=== PATIENT | female | born 2000 | race Caucasian/White ===

== ENCOUNTER → 2020-01-07 09:02 | Outpatient (BNVA) | payer SELFPAY | PROVIDERS: Visit Provider Family Medicine | DX: N91.2 Amenorrhea, unspecified (principal); Z3A.01 Less than 8 weeks gestation of pregnancy | CPT/HCPCS: 81025 ==

== ENCOUNTER → 2020-01-27 13:21 | Outpatient (BNVA) | payer MEDICAID, SELFPAY | PROVIDERS: Visit Provider Nurse Practitioner Women's Health | DX: Z34.81 Encounter for supervision of other normal pregnancy, first trimester (principal); Z3A.01 Less than 8 weeks gestation of pregnancy | CPT/HCPCS: 81000 ==

== ENCOUNTER → 2020-02-10 08:58 | Outpatient (BNVA) | payer MEDICAID, SELFPAY | PROVIDERS: Visit Provider Obstetrics & Gynecology | DX: Z34.81 Encounter for supervision of other normal pregnancy, first trimester (principal) | CPT/HCPCS: 80053; 80307; 81000; 85027; 86592; 86762; 86803; 86850; 86900; 87340 ==

== ENCOUNTER → 2020-02-29 09:52 | Outpatient (BNVA) | payer MEDICAID, SELFPAY | PROVIDERS: Visit Provider Obstetrics & Gynecology | DX: Z34.81 Encounter for supervision of other normal pregnancy, first trimester (principal) | CPT/HCPCS: 81000; 87491; 87591; 88175 ==

== ENCOUNTER → 2020-03-23 08:04 | Outpatient (BNVA) | payer MEDICAID, SELFPAY | PROVIDERS: Visit Provider Nurse Practitioner Women's Health | DX: Z34.81 Encounter for supervision of other normal pregnancy, first trimester (principal) | CPT/HCPCS: 81000 ==

== ENCOUNTER → 2020-05-02 15:20 | Outpatient (BNVA) | payer MEDICAID, SELFPAY | PROVIDERS: Visit Provider Obstetrics & Gynecology | DX: Z34.90 Encounter for supervision of normal pregnancy, unspecified, unspecified trimester (principal) | CPT/HCPCS: 81000 ==

== ENCOUNTER → 2020-05-24 08:47 | Outpatient (BNVA) | payer MEDICAID, SELFPAY | PROVIDERS: Visit Provider Obstetrics & Gynecology | DX: Z34.81 Encounter for supervision of other normal pregnancy, first trimester (principal) | CPT/HCPCS: 81000 ==

== ENCOUNTER → 2020-06-21 10:52 | Outpatient (BNVA) | payer MEDICAID, SELFPAY | PROVIDERS: Visit Provider Obstetrics & Gynecology | DX: Z34.90 Encounter for supervision of normal pregnancy, unspecified, unspecified trimester (principal) | CPT/HCPCS: 81000; 82950; 85025 ==

== ENCOUNTER → 2020-07-11 08:05 | Outpatient (BNVA) | payer MEDICAID, SELFPAY | PROVIDERS: Visit Provider Obstetrics & Gynecology | DX: Z34.81 Encounter for supervision of other normal pregnancy, first trimester (principal) | CPT/HCPCS: 81000 ==

== ENCOUNTER → 2020-07-19 11:04 | Outpatient (BNVA) | payer MEDICAID, SELFPAY | PROVIDERS: Visit Provider Obstetrics & Gynecology | DX: Z34.81 Encounter for supervision of other normal pregnancy, first trimester (principal) | CPT/HCPCS: 81000 ==

== ENCOUNTER → 2020-08-02 09:30 | Outpatient (BNVA) | payer MEDICAID, SELFPAY | PROVIDERS: Visit Provider Nurse Practitioner Women's Health | DX: Z34.81 Encounter for supervision of other normal pregnancy, first trimester (principal) | CPT/HCPCS: 81000 ==

== ENCOUNTER 2020-08-03 18:00 | Outpatient (CLI) | payer MEDICAID, SELFPAY ==
[2020-08-03 18:29] VITALS: BMI 25.4
[2020-08-03 18:34] VITALS: TEMP 36.4
[2020-08-03 19:28] VITALS: BP 118/80; PULSE 60; RESP 18; TEMP 36.4
[2020-08-03 19:37] LABS: Nitrazine Paper, PH Negative
== END 2020-08-03 18:45 | disposition home or self-care (01) ==
LOC: OBGYN 18:36 → OPOB 08-04 08:11 → OBGYN 08-04 08:11
PROVIDERS: Visit Provider Obstetrics & Gynecology
DX: O26.899 Other specified pregnancy related conditions, unspecified trimester (principal); Z3A.00 Weeks of gestation of pregnancy not specified; N89.8 Other specified noninflammatory disorders of vagina
CPT/HCPCS: 59025; 83986; 99211; G0378; G0379

== ENCOUNTER → 2020-08-22 13:30 | Outpatient (BNVA) | payer MEDICAID, SELFPAY | PROVIDERS: Visit Provider Obstetrics & Gynecology | DX: Z34.81 Encounter for supervision of other normal pregnancy, first trimester (principal) | CPT/HCPCS: 81000; 87081 ==

== ENCOUNTER → 2020-08-29 08:11 | Outpatient (BNVA) | payer BC, MEDICAID, SELFPAY | PROVIDERS: Visit Provider Obstetrics & Gynecology | DX: O26.899 Other specified pregnancy related conditions, unspecified trimester (principal); N89.8 Other specified noninflammatory disorders of vagina; Z3A.00 Weeks of gestation of pregnancy not specified | CPT/HCPCS: 81000; 83986 ==

== ENCOUNTER → 2020-09-06 08:46 | Outpatient (BNVA) | payer BC, MEDICAID, SELFPAY | PROVIDERS: Visit Provider Obstetrics & Gynecology | DX: Z34.90 Encounter for supervision of normal pregnancy, unspecified, unspecified trimester (principal) | CPT/HCPCS: 81000 ==

== ENCOUNTER → 2020-09-13 10:16 | Outpatient (BNVA) | payer BC, MEDICAID, SELFPAY | PROVIDERS: Visit Provider Obstetrics & Gynecology | DX: Z34.81 Encounter for supervision of other normal pregnancy, first trimester (principal) | CPT/HCPCS: 81000; 87635 ==

== ENCOUNTER 2020-09-14 17:59 | Inpatient (IN) | payer BC, MEDICAID, SELFPAY ==
[2020-09-14] VITALS (8 sets, daily range): BP systolic 112–142; BP diastolic 64–75; PULSE 73–87; RESP 16; TEMP 37; O2SAT 97–98; BMI 26.6
[2020-09-14] MEDS: miSOPROStol 100 mcg tablet 25 MCG VAGINAL (19:02)
[2020-09-14 20:25] LABS: Basophils % 0.3 %; Eosinophils # 0.1 10^3/uL (0.0-0.8); Eosinophils % 0.6 %; Hematocrit 35.6 % (37.0-47.0); Lymphocytes # 2.2 10^3/uL (0.8-4.8); Lymphocytes % 17.8 %; Mean Corpuscular HGB Conc 33.7 g/dL (30.0-36.0); Mean Corpuscular Hemoglobin 31.7 pg (28.0-34.0); Mean Corpuscular Volume 94.2 fL (81-99); Mean Platelet Volume 12.6 fL (7.4-10.4); Monocytes # 0.7 10^3/uL (0.2-0.9); Monocytes % 5.5 %; Neutrophils # 9.46 10^3/uL (1.8-7.7); Neutrophils % 75.4 %; Nucleated Red Blood Cells % 0 %; Platelet Count 179 10^3/cmm (130-400); Red Blood Count 3.78 10^6/uL (4.1-5.3); Red Cell Distribution Width 11.9 % (12.1-15.1); White Blood Count 12.5 10^3/uL (4.0-10.0)
[2020-09-14] MEDS: dextrose 5%-lactated ringers 1,000 ML 125 ML IV (22:00)
[2020-09-14] MEDS: fentaNYL 50 mcg/mL INJ 2mL IV (22:43)
[2020-09-14] MEDS: lactated ringers 1,000 ML 999 ML IV (22:57)
[2020-09-15] VITALS (50 sets, daily range): BP systolic 81–232; BP diastolic 46–131; PULSE 54–144; TEMP 36.4–37.1; O2SAT 84–99
--- NOTE | 2020-09-15 00:20 | ANES.PREANE2 ---
Pre-Anesthetic Assessment Pre-Anesthetic Assessment: Height/Weight: Height 1.68 m Weight 74.843 kg Temp Pulse Resp BP Pulse Ox 98.6 F 72 16 114/54 96 09/14/20 18:39 09/15/20 00:18 09/14/20 22:43 09/15/20 00:18 09/15/20 00:14 Preop Diagnosis: Active Labor Proposed Procedure: Epidural Familial anesthetic complications: none Was Beta Nahid taken within 24 hours: N/A Last intake: Meal 1700 Clear Liquids 2330 Social: Social History: No alcohol and No tobacco Exam: Pre-Anes Outpt Exam: clear to auscultation bilaterally Airway: Submandibular: WNL Cervical ROM: WNL MP: 2 History/ROS: No significant history except as noted Pulmonary: Pulmonary: None reported CV/HEM: CV/HEM: None reported : : None reported Hepatic: Hepatic: None reported GI: GI: None reported Metabolic: Metabolic: None reported Musc/skel: Musc/skel: None reported Neuropsych: Neuropsych: None reported Anesthetic Plan: ASA status: 2 Anesthesia: Eval. for regional block Risk of > 500 ml blood loss (7ml/kg in children): No Meds/Allergies Current Medications: Current Medications Generic Name Dose Route Start Last Admin Trade Name Freq PRN Reason Stop Dose Admin Fentanyl 25 - 100 mcg 09/14/20 18:44 09/14/20 22:43 Fentanyl 50 Mcg/ Ml Inj 2ml IV 25 mcg Q1H PRN Administration SEVERE PAIN Dextrose/Lactated Ringer's 1,000 mls @ 125 m ls/hr 09/14/20 18:45 09/14/20 22:57 Dextrose 5%-Lact ated Ringers IV 0 mls/hr .Q8H VIKASH Infusion Ropivacaine 200 mg in 100 mls @ 13 mls/hr 09/14/20 23:00 09/15/20 00:16 Naropin Premix EPIDURAL 13 mls/hr .Q7H42M VIKASH Administration Lactated Ringer's 1,000 mls @ 999 m ls/hr 09/14/20 22:52 09/14/20 23:58 Lactated Ringers IV Infused .Q1H1M PRN Infusion See label comment s PFSH Anesthesia PFSH: Medical History No pertinent past medical history Denies history of: hypertension, diabetes, heart, lung, liver, kidney, thyroid, genital herpes, bleeding problems, or clotting problems PMD: Dr. Serrano Surgical History No history of previous surgery Family History Denies family history of Colon cancer Ovarian cancer Diabetes Heart disease Hyperlipidemia Breast cancer Hypertension Uterine cancer Thyroid condition Stroke Social History Smoking and tobacco status: never smoked Alcohol intake: never Additional social history: - Female Reproductive History: : 2 Data Anesthesia CBC & Chem 7: 09/14/20 18:30 Other Labs: Laboratory Results - last 48 hr 09/14/20 18:30 WBC 12.5 H RBC 3.78 L Hgb 12.0 Hct 35.6 L MCV 94.2 MCH 31.7 MCHC 33.7 RDW 11.9 L Plt Count 179 MPV 12.6 H Neut % (Auto) 75.4 Lymph % (Auto) 17.8 [place] % (Auto) 5.5 Eos % (Auto) 0.6 Baso % (Auto) 0.3 Neut # (Auto) 9.46 H Lymph # (Auto) 2.2 [place] # (Auto) 0.7 Eos # (Auto) 0.1 Baso # (Auto) 0.0 Nucleated RBC % (auto) 0 Nucleated RBCs # 0.0 Cardiac Studies: No Data to Display
--- NOTE | 2020-09-15 00:23 | ANES.PROC ---
Anesthesia Procedures Procedure/Date: 09/15/20 Epidural: Time Out Performed: Yes Consents Signed: Procedure Consent Consent: requested by attending/covering physician Lumbar Level: L3-L4 Epidural position: sitting Epidural procedure: sterile prep of area, 1% lidocaine to numb the area, negative for paresthesia passed, 0.2% Ropivacaine bolus ml and 0.2% Ropiavacaine @ mls/hr (13 ml) Additional Comments: HARPAL at 6 cm catheter threaded to 11 cm
[2020-09-15] MEDS: lactated ringers 1,000 ML 999 ML IV (00:27)
[2020-09-15] MEDS: oxytocin 30 UNIT/500 ML BAG 600 UNIT IV (01:30)
--- NOTE | 2020-09-15 01:38 | P.PCNOB_ITS ---
Delivery Note: Date of delivery: September 15, 2020 Pre-delivery diagnoses: Term Post-delivery diagnoses: Term delivered Procedure: Spontaneous vaginal delivery Op report anesthesia: Epidural Delivering Physician: Memo Burdick MD Estimated blood loss (mL): 500 Findings: Delivered female infant Apgars 9/9 with a weight 3405 g. First-degree laceration, repaired. Pre-Delivery Course: Ms. Mina is a 20 year old with an LMP of 12/01/2019 and an JORGE of 09/13/2020 redated by an 8 week ultrasound, placing her at 40 2/7 weeks today. Who has been receiving care from [facility]. HPI: Received appropriate care. Daily vitamins since start of care. labs have all been normal, including negative for HIV. She was found to be negative for Group B Strep from screening at 36 weeks. She has gained approximately 38 lbs throughout the . She denies a history of HTN during . Glucose tolerance screening for gestational diabetes was negative. Came in yesterday afternoon for an elective induction. 1 misoprostol dose was given intravaginally for cervical ripening. She was then started on oxytocin for labor augmentation and progress to a spontaneous vaginal delivery. Delivery: The patient was noted to be complete and pushing, so was placed in the dorsal lithotomy position, prepped and draped in the usual sterile fashion for a vaginal delivery. Pt. Noted to have epidural anesthesia. At 0126 the patient delivered a viable at 40 weeks female infant weighing 3405 g with scores of 9 and 9 at one and five minutes, respectively. The vertex was delivered spontaneously over an intact perineum. The patient was asked to push and the head delivered spontaneously in the MARIA ELENA position, over an intact perineum. A nuchal cord was checked and none noted. The anterior shoulder delivered easily and the posterior shoulder followed. The remainder of the infant was easily delivered and the oropharynx and nasopharynx was bulb suctioned. Meconium stained amniotic fluid noted. The was noted to have spontaneous cry and spontaneous movement of all four extremities. The cord was clamped x 2 and cut and noted to have 2 arteries and one vein. The was passed to the mother's abdomen where nursing personnel were in attendance. Cord blood sample was then obtained. The placenta delivered intact spontaneously and the uterus was explored. 20 units of Pitocin was placed in the IV bag to firm the uterus. Examination of the cervix and vaginal vault did not reveal any lacerations. A vaginal pack was then placed. Examination of the perineum showed first-degree laceration. The laceration was repaired with 3-0 Vicryl in the normal fashion in a running non locking fashion to reapproximate the laceration in layers. The vaginal pack was then removed. The patient tolerated this procedure well, and recovered in L&D with her to the OB torrez. All sponge and needle counts were correct. Post-Delivery Status: Good and stable. A&P Assessment and plan (1) Term delivered: Status: Acute Coding Level of Care Code Acute Food Safety Technician for Chg Fwd Diagnoses Term delivered O80
[2020-09-15] MEDS: docusate sodium 100 mg Capsule PO ×2 (08:05→17:20)
[2020-09-15] MEDS: ibuprofen 800 mg tablet PO ×3 (08:05→21:42)
[2020-09-15] MEDS: prenatal vitamin Capsule 1 CAP PO (08:05)
[2020-09-15] MEDS: acetaminophen 325 mg Tablet 650 MG PO ×2 (09:25→17:19)
[2020-09-15 13:53] LABS: Mean Corpuscular HGB Conc 33.3 g/dL (30.0-36.0); Mean Corpuscular Hemoglobin 32.1 pg (28.0-34.0); Mean Corpuscular Volume 96.2 fL (81-99); Platelet Count 154 10^3/cmm (130-400); Red Blood Count 3.43 10^6/uL (4.1-5.3); Red Cell Distribution Width 11.9 % (12.1-15.1); White Blood Count 13.6 10^3/uL (4.0-10.0)
[2020-09-16 06:31] VITALS: TEMP 36.1
[2020-09-16 06:32] VITALS: BP 106/73; PULSE 61
--- NOTE | 2020-09-16 08:33 | P.DS_ITS ---
Discharge Providers TUMBLER MACHINE OPERATOR Date of Admission: 09/14/20 17:59 Date of Discharge: 09/16/20 Attending Provider at Admission: Memo Burdick MD Attending Provider at Discharge: Memo Burdick MD Diagnoses at Discharge Discharge Diagnosis (1) Term delivered: Status: Acute Reason for Visit Reason for Visit: IUP Hospital Course Hospital Course Ms. Mina is a 20 year old with an LMP of 12/01/2019 and an JORGE of 09/13/2020 dated by an 8 week ultrasound, placing her at 40 2/7 weeks today. Who has been receiving care from [facility]. HPI: Received appropriate care. Daily vitamins since start of care. labs have all been normal, including negative for HIV. She was found to be negative for Group B Strep from screening at 36 weeks. She has gained approximately 38 lbs throughout the . She denies a history of HTN during . Glucose tolerance screening for gestational diabetes was negative. Came in yesterday afternoon for an elective induction. 1 misoprostol dose was given intravaginally for cervical ripening. She was then started on oxytocin fo r labor augmentation and progress to a spontaneous vaginal delivery. She delivered a female infant, APGARS 9/9 with a weight at 3405g. recovery uneventful. She is afebrile and hemodynamically stable. Tolerating diet well. She is breast feeding and plan OCP for contraception. Information Peripartum Data: Delivery Method: Vaginal Laceration description: Perineal - 1st Degree complications: none Physical Exam Narrative: EXAM NARRATIVE: GA; alert and oriented x 3 HEENT: normal Breasts: engorged Nipples - skin intact Lungs; clear to auscultation Heart: regular rhythm, no murmurs. Abd: Appropriately tender. BS+. Uterine fundus below umbilicus. No Fundal Tenderness. Perineum: normal lochia. Extremities: no edema, no cyanosis, no tenderness. Urinary Catheter Management^: Rodriguez: Cath Placed During This Visit: yes, but has since been removed by the nurse Reason for Continuing Indwelling Catheter: Decision to DC Catheter Urinary Catheter Date of Insertion: 09/15/20 Urinary Catheter Time of Insertion: 00:49 Date Urinary Catheter Removed: 09/15/20 Time Urinary Catheter Discontinued: 01:19 Discharge Data Data Completed and Pending: Labs from last 24 hours 09/15/20 13:40 WBC 13.6 H RBC 3.43 L Hgb 11.0 L Hct 33.0 L MCV 96.2 MCH 32.1 MCHC 33.3 RDW 11.9 L Plt Count 154 MPV 12.0 H Vitals: Last Vital Signs Temp 97.0 F L 09/16/20 06:31 Pulse 61 09/16/20 06:32 Resp 16 09/14/20 22:43 BP 106/73 09/16/20 06:32 Pulse Ox 99 09/15/20 01:04 Discharge Plan Discharge Patient Disposition: Home Condition: Stable Prescriptions: New ferrous sulfate [Iron (ferrous sulfate)] 325 mg (65 mg iron) tablet 325 mg PO BID Qty: 60 RF: 0 acetaminophen 325 mg capsule 325 mg PO Q4H PRN (Reason: fever or pain) Qty: 60 RF: 0 ibuprofen 800 mg tablet 800 mg PO TID PRN (Reason: pain) Qty: 60 RF: 0 Continued prenat.vits,karla,lpm-jpni-wwlcs Tablet 1 tab PO DAILY RF: 0 Discharge Orders: Discharge Order (Routine); Ordered 09/16/20 Ordered By: Memo Burdick Referrals: Memo Burdick MD [Physician] - 2 weeks Discharge Diet: Regular Discharge Activity: Increase activity as tolerated Patient Instructions: Vaginal Delivery (DC) Activity Restrictions/Additional Instructions: 1. Please call [facility] on next working day to make your appointment in 6 weeks. 2. Please stay home until you come back to the clinic on first post-operative check up. 3. Please follow instructions on your medications CAREFULLY. 4. If you have abdominal incision, do not cover it unless dressing is necessary because of drainage. OK to shower, but avoid bath. Leave steri-strips until they fall off. If they are still on one week after surgery, you may remove them. 5. If you had vaginal surgery, your doctor may instruct you to take SITZ bath. 6. Yellow, blood tinged odorous vaginal discharge is usually normal after hysterectomy or vaginal surgeries. 7. No sexual intercourse, tampons, or douches until you are completely released from the post-operative care. 8. Avoid constipation by eating right and maybe using some Metamucil or Milk of Magnesia. 9. All prescription refills are given during the working hours. Please do no wait till it runs out. Call the clinic at [phone] before your medication runs out. The clinic will get in touch with your doctor to prescribe medications if necessary. 10. Please remain within 40 mile radius from our hospital because emergencies do happen now and then during the post-operative period. 11. If you have stairs at home, take one step at a time slowly and minimize the number of trips. It helps to stay in one floor for the next few days. No lifting except what you can lift by one hand until you are released from the post-operative care. 12. Driving is discouraged until you are well healed. It may be 3-4 weeks before you feel strong enough to drive. You should be able to turn and look through the rear window without pain and you should be able to push the brake pedal very hard without pain before you drive. No fast rules, but SAFETY should be your primary concern. DO NOT drive if you are on sedating medications such as narcotics. 13. Call the clinic (during working hours) to make urgent appointment or go to the Emergency room, if any of the following occurs: i. Vaginal bleeding becomes heavy, more than a period. ii. Incision becomes red and sore, or drains pus. iii. Your temperature is over 100.4 or you have chill. iv. IV site becomes red and swollen (a little ``knot?? is usually OK) v. Persistent nausea and vomiting vi. Persistent constipation or diarrhea vii. Rash or allergic reaction to medications. Discharge Attestations TUMBLER MACHINE OPERATOR Time Spent in Discharge Care*: greater than 30 min Coding Level of Care Code Acute Marketing Outreach Coordinator for Chg Fwd Diagnoses Term delivered O80
[2020-09-16] MEDS: ibuprofen 800 mg tablet PO (09:06)
[2020-09-16] MEDS: prenatal vitamin Capsule 1 CAP PO (09:06)
[2020-09-16] MEDS: docusate sodium 100 mg Capsule PO (09:06)
[2020-09-16] MEDS: acetaminophen 325 mg Tablet 650 MG PO (10:12)
[2020-09-16 10:30] VITALS: BP 117/78; PULSE 79; RESP 16; TEMP 36.3
[2020-09-16 10:35] VITALS: BP 117/78; PULSE 79; TEMP 36.3
== END 2020-09-16 10:39 | disposition home or self-care (01) | DRG 807 ==
PROVIDERS: Obstetrics & Gynecology; Admitting Provider Obstetrics & Gynecology; Visit Provider Obstetrics & Gynecology
DX: O77.0 Labor and delivery complicated by meconium in amniotic fluid (principal); Z37.0 Single live birth; O70.0 First degree perineal laceration during delivery; Z3A.40 40 weeks gestation of pregnancy
CPT/HCPCS: 12345; 36415; 51702; 59025; 59409; 85025; 85027; G0379; J2795; J3010

== ENCOUNTER → 2021-05-12 10:21 | Outpatient (BNVA) | payer BC, MEDICAID, SELFPAY | PROVIDERS: Visit Provider Nurse Practitioner Family | DX: Z20.822 Contact with and (suspected) exposure to COVID-19 (principal) | CPT/HCPCS: 87635 ==

== ENCOUNTER 2021-08-03 22:38 | Emergency (ER) | payer BC, MEDICAID, SELFPAY ==
[2021-08-03 22:48] VITALS: BP 117/78; PULSE 69; RESP 16; TEMP 36.7; O2SAT 100
--- NOTE | 2021-08-03 22:56 | XRR_ITS ---
PROCEDURE INFORMATION: Exam: XR Chest Exam date and time: 08/03/2021 10:56 PM Age: 21 years old Clinical indication: Pain; Chest pressure; Additional info: SOB TECHNIQUE: Imaging protocol: XR of the chest. Views: 1 view. COMPARISON: No relevant prior studies available. FINDINGS: Lungs: Unremarkable. No consolidation. Pleural spaces: Unremarkable. No pleural effusion. No pneumothorax. Heart/Mediastinum: Unremarkable. No cardiomegaly. Bones/joints: Unremarkable. XR/XR chest 1V portable [id number] IMPRESSION: No acute findings.
[2021-08-04 00:05] LABS: Influenza A by IFA Negative (Negative); Influenza B by IFA Negative (Negative); SARS Covid-2 Antigen Negative (Negative)
[2021-08-04 00:22] VITALS: PULSE 71; RESP 17; O2SAT 98
[2021-08-04 00:40] VITALS: PULSE 74; O2SAT 96
[2021-08-04] MEDS: sodium chloride 0.9% 1,000 ML 999 ML IV (00:44)
[2021-08-04 01:04] LABS: D Dimer 0.41 ug/mIFEU (0-0.59)
--- NOTE | 2021-08-04 01:05 | W.ED.SOB ---
HPI - SOB/Dyspnea General: Chief Complaint: Shortness of Breath/Dyspnea Stated Complaint: Cough\SOB\Muscle Aches\diahrea Time Seen by Provider: 08/04/21 00:00 Source: patient Mode of arrival: ambulatory Limitations: no limitations History of Present Illness: HPI Narrative: 21-year-old female states that she had Covid in April and was diagnosed with bronchitis 2 weeks ago. She states that she just finished her last dose of doxycycline has been having some epigastric burning abdominal pain radiating to her chest. States it is caused her some slight shortness of breath as well. States pain sharp. Today 6 out of 10 currently denies any worsening improving factors denies any cough or fever denies any vomiting or diarrhea. Associated symptoms: Reports abdominal pain; Deny chest pain or fever(s) Review of Systems Const: Denies: fever(s), chills, body aches or change in appetite Eyes: Denies: blurry vision or eye discomfort ENMT: Denies: throat pain or dental pain Card: Denies: chest pain Resp: Reports: dyspnea GI: Reports: abdominal pain : Denies: dysuria Musc: Denies: neck pain or back pain Skin/Breast: Denies: rash Neuro: Denies: headache(s) Psych: Denies: depression Eyal/Lymph: Denies: easy bruising All/Imm: Denies: urticaria PFSH ED PFSH: Medical History (Updated 08/04/21 @ 01:37 by Amy Heck MD) No pertinent past medical history Denies history of: hypertension, diabetes, heart, lung, liver, kidney, thyroid, genital herpes, bleeding problems, or clotting problems PMD: Dr. Serrano Surgical History No history of previous surgery Family History Denies family history of Colon cancer Ovarian cancer Diabetes Heart disease Hyperlipidemia Breast cancer Hypertension Uterine cancer Thyroid condition Stroke Social History Smoking and tobacco status: never smoked Alcohol intake: never Additional social history: - Physical Exam Const: COMMON NORMALS: no acute distress, patient oriented x3 and healthy appearing HENMT: COMMON NORMALS: normocephalic and atraumatic HEAD & SCALP: normocephalic and atraumatic Eye: COMMON NORMALS: Equal, round and reactive pupils present and EOMs intact bilaterally PUPIL: Yes Equal, round and reactive pupils present Neck/C-Spine: COMMON NORMALS: full ROM and supple Chest: COMMONS NORMALS: normal inspection of the chest and normal palpation of entire chest wall Resp: COMMON NORMALS: normal respiratory effort, No retractions, No use of accessory muscles and clear to auscultation bilaterally AUSCULTATION: clear to auscultation bilaterally Cardio: COMMON NORMALS: regular rate, regular rhythm and No murmurs present (Cardio) RATE: regular rate RHYTHM: regular rhythm GI: COMMON NORMALS: Normal to inspection, nondistended, normoactive bowel sounds present, Soft to palpation, non-tender and no masses PALPATION: Yes Soft to palpation Extremity: COMMON NORMALS: normal to inspection and full ROM Neuro: COMMON NORMALS: patient oriented x3, moves all extremities and no focal motor deficits Psych: COMMON NORMALS: mental status grossly normal, Normal thought process present and cooperative THOUGHT PROCESS: Normal thought process present Skin: COMMON NORMALS: no rashes or lesions noted and no wounds GENERAL SKIN EXAM: no rashes or lesions noted Course Vital Signs: Vital signs: Vital Signs Temperature 98.0 F 08/03/21 22:48 Pulse Rate 74 08/04/21 00:40 Respiratory Rate 17 08/04/21 00:22 Blood Pressure 117/78 08/03/21 22:48 Pulse Oximetry 96 08/04/21 00:40 MDM - SOB/Dyspnea MDM Narrative: Medical decision making narrative: Patient presents with some abdominal pain likely gastritis from antibiotic use. D-dimer here is negative no sign of pulmonary embolism x-ray is negative for pneumonia blood work is normal. We will place her on Protonix she is to follow-up with PCP and return if worsening she understands agrees to plan. Lab Data: Labs: Lab Results 08/03/21 08/03/21 08/04/21 23:35 23:35 00:31 WBC 11.8 10^3/uL H 10 ^3/uL (4.0-10.0) RBC 4.34 10^6/uL 10^6 /uL (4.1-5.3) Hgb 12.7 g/dL g/dL (11.5-15.3) Hct 39.0 % % (37.0-47.0) MCV 89.9 fl fl (81-99) MCH 29.3 pg pg (28.0-34.0) MCHC 32.6 g/dL g/dL (30.0-36.0) RDW 12.0 % L % (12.1-15.1) Plt Count 271 10^3/cmm 10^3 /cmm (130-400) MPV 10.8 fL H fL (7.4-10.4) Neut % (Auto) 65.4 % % Lymph % (Auto) 25.3 % % [place] % (Auto) 6.6 % % Eos % (Auto) 1.9 % % Baso % (Auto) 0.5 % % Neut # (Auto) 7.72 10^3/uL H 10 ^3/uL (1.8-7.7) Lymph # (Auto) 3.0 10^3/uL 10^3/ uL (0.8-4.8) [place] # (Auto) 0.8 10^3/uL 10^3/ uL (0.2-0.9) Eos # (Auto) 0.2 10^3/uL 10^3/ uL (0.0-0.8) Baso # (Auto) 0.1 10^3/uL 10^3/ uL (0.0-0.1) Nucleated RBC % (a uto) 0 % % Nucleated RBCs # 0.0 /100WBC /100W BC D-Dimer Sodium Potassium Chloride Carbon Dioxide Anion Gap BUN Creatinine GFR Calculation Glucose Calculated Osmolal ity Calcium Total Bilirubin AST ALT Alkaline Phosphata se Total Protein Albumin Globulin Lipase Influenza Type A A g Negative (Negative) Influenza Type B A g Negative (Negative) SARS-CoV-2 Ag (Rap id) Negative (Negative) 08/04/21 08/04/21 00:31 00:31 WBC RBC Hgb Hct MCV MCH MCHC RDW Plt Count MPV Neut % (Auto) Lymph % (Auto) [place] % (Auto) Eos % (Auto) Baso % (Auto) Neut # (Auto) Lymph # (Auto) [place] # (Auto) Eos # (Auto) Baso # (Auto) Nucleated RBC % (a uto) Nucleated RBCs # D-Dimer 0.41 ug/mIFEU ug/ mIFEU (0-0.59) Sodium 138 mmol/L mmol/L (136-145) Potassium 3.8 mmol/L mmol/L (3.5-5.1) Chloride 103 mmol/L mmol/L (98-107) Carbon Dioxide 22 mmol/L mmol/L (22-29) Anion Gap 16.8 (5-19) BUN 14 mg/dL mg/dL (6-20) Creatinine 0.5 mg/dL mg/dL (0.5-0.9) GFR Calculation 152.9 mL/min H mL /min (90-130) Glucose 87 mg/dL mg/dL (65-115) Calculated Osmolal ity 286 mOsm/kg mOsm/ kg (285-295) Calcium 9.4 mg/dL mg/dL (8.5-10.5) Total Bilirubin 1.7 mg/dL H mg/dL (0.15-1.2) AST 14 U/L U/L (0-32) ALT 11 U/L U/L (0-33) Alkaline Phosphata se 74 IU/L IU/L (35-105) Total Protein 7.6 g/dL g/dL (6.6-8.7) Albumin 4.7 g/dL g/dL (3.5-5.2) Globulin 2.9 g/dL g/dL (1.3-4.6) Lipase 20 U/L U/L (13-60) Influenza Type A A g Influenza Type B A g SARS-CoV-2 Ag (Rap id) Imaging Data^: CXR: Attestation: I personally reviewed and interpreted this imaging study as follows: Radiologist's impression: [place] [address] XRay Report Signed Patient: Melissa Mina Unit #: [id number] : 2000 Age/Sex: 21 / F ADM Date: 08/03/21 Loc: ER Room/Bed: Attending Dr: Ordering Provider/Ordering MD: Ada Watson , [facility] Date of Service: 08/03/21 Procedure(s): XR chest 1V portable [id number] Accession Number(s): [id number] Report Number: [id number] PROCEDURE INFORMATION: Exam: XR Chest Exam date and time: 08/03/2021 10:56 PM Age: 21 years old Clinical indication: Pain; Chest pressure; Additional info: SOB TECHNIQUE: Imaging protocol: XR of the chest. Views: 1 view. COMPARISON: No relevant prior studies available. FINDINGS: Lungs: Unremarkable. No consolidation. Pleural spaces: Unremarkable. No pleural effusion. No pneumothorax. Heart/Mediastinum: Unremarkable. No cardiomegaly. Bones/joints: Unremarkable. XR/XR chest 1V portable [id number] IMPRESSION: No acute findings. Dictated By: Satish Rider Signed By: Satish Rider Signed Date/Time: 08/04/21 0022 EKG Data^: EKG 1: Attestation: I personally reviewed and interpreted this EKG as follows: EKG Interpretation Date: 08/04/21 EKG interpretation time: 01:15 Interpretation: sinus ludin hr [address] or t wave abnormalities qrs 84 qtc 375 Discharge Plan Discharge Patient Disposition: Home Clinical Impression: Dyspnea Abdominal pain Qualifiers: Abdominal location: generalized Qualified Code(s): R10.84 - Generalized abdominal pain Condition: Stable Prescriptions: New Protonix 40 mg tablet,delayed release (DR/EC) 40 mg PO DAILY Qty: 60 RF: 0 No Action norethindrone (contraceptive) [Leatha] 0.35 mg tablet 0.35 mg PO DAILY Qty: 84 RF: 2 Discharge Orders: Discharge ED (Routine); Ordered 08/04/21 Ordered By: Amy Heck Discharge Diet: Advance as tolerated Discharge Activity: Resume usual activity Patient Instructions: Abdominal Pain (ED) Coding Level of Care Code ED Wind Tunnel Mechanic for Chg Fwd Exam Comprehensive
--- NOTE | 2021-08-04 01:06 | ECG_ITS ---
[facility] Test Date: 2021-08-04 Pat Name: Melissa Mina Department: Room: Gender: Female [employer]: : 2000 Requested By: Amy Heck Order Number: [id number] Minh MD: Cornelia Lambert M.D. Measurements Intervals Platinum Rate: 58 P: 77 NM: 144 QRS: 79 QRSD: 84 T: 66 QT: 377 QTc: 373 Interpretive Statements SINUS BRADYCARDIA WITH SINUS ARRHYTHMIA No previous ECG available for comparison Electronically Signed On 08-05-2021 7:37:26 HR GENERALIST by Cornelia Lambert M.D. [id number]
[2021-08-04 01:10] LABS: Alanine Aminotransferase 11 U/L (0-33); Albumin Level 4.7 g/dL (3.5-5.2); Alkaline Phosphatase 74 IU/L (35-105); Anion Gap 16.8 (5-19); Aspartate Amino Transferase 14 U/L (0-32); Blood Urea Nitrogen 14 mg/dL (6-20); Calcium 9.4 mg/dL (8.5-10.5); Carbon Dioxide 22 mmol/L (22-29); Chloride 103 mmol/L (98-107); Globulin 2.9 g/dL (1.3-4.6); Glomerular Filtration Rate 152.9 mL/min (90-130); Glucose 87 mg/dL (65-115); Lipase 20 U/L (13-60); Osmolality Calculated 286 mOsm/kg (285-295); Potassium 3.8 mmol/L (3.5-5.1); Sodium 138 mmol/L (136-145); Total Bilirubin 1.7 mg/dL (0.15-1.2); Total Protein 7.6 g/dL (6.6-8.7)
[2021-08-04 01:12] LABS: Basophils # 0.1 10^3/uL (0.0-0.1); Basophils % 0.5 %; Eosinophils # 0.2 10^3/uL (0.0-0.8); Eosinophils % 1.9 %; Hemoglobin 12.7 g/dL (11.5-15.3); Lymphocytes % 25.3 %; Mean Corpuscular HGB Conc 32.6 g/dL (30.0-36.0); Mean Corpuscular Hemoglobin 29.3 pg (28.0-34.0); Mean Corpuscular Volume 89.9 fl (81-99); Mean Platelet Volume 10.8 fL (7.4-10.4); Monocytes # 0.8 10^3/uL (0.2-0.9); Monocytes % 6.6 %; Neutrophils # 7.72 10^3/uL (1.8-7.7); Neutrophils % 65.4 %; Nucleated Red Blood Cells % 0 %; Platelet Count 271 10^3/cmm (130-400); Red Blood Count 4.34 10^6/uL (4.1-5.3); White Blood Count 11.8 10^3/uL (4.0-10.0)
[2021-08-04 01:45] VITALS: PULSE 77; RESP 19; O2SAT 100
== END 2021-08-04 01:47 | disposition home or self-care (01) ==
PROVIDERS: Emergency Provider Emergency Medicine
DX: R06.00 Dyspnea, unspecified (principal); R10.84 Generalized abdominal pain
CPT/HCPCS: 71045; 80053; 83690; 85025; 85378; 87426; 87804; 93005; 96360; 99283; J7030

== ENCOUNTER → 2021-08-09 15:46 | Outpatient (BNVA) | payer BC, MEDICAID, SELFPAY | PROVIDERS: Visit Provider Family Medicine | DX: J02.9 Acute pharyngitis, unspecified (principal) | CPT/HCPCS: 87880 ==

== ENCOUNTER → 2022-01-08 16:53 | Outpatient (BNVA) | payer BC, MEDICAID, SELFPAY | PROVIDERS: Visit Provider Nurse Practitioner Family | DX: Z20.822 Contact with and (suspected) exposure to COVID-19 (principal); Z13.9 Encounter for screening, unspecified; R05.9 Cough, unspecified; J40 Bronchitis, not specified as acute or chronic; R10.12 Left upper quadrant pain; R50.9 Fever, unspecified | CPT/HCPCS: 80053; 82150; 83690; 87635 ==

== ENCOUNTER → 2022-06-20 17:06 | Outpatient (BNVA) | payer OTHER, SELFPAY | PROVIDERS: Visit Provider Nurse Practitioner Family | DX: Z20.818 Contact with and (suspected) exposure to other bacterial communicable diseases (principal); J02.0 Streptococcal pharyngitis | CPT/HCPCS: 87880 ==

== ENCOUNTER → 2022-08-21 15:00 | Outpatient (BNVA) | payer OTHER, SELFPAY | PROVIDERS: Visit Provider Nurse Practitioner Women's Health | DX: Z34.90 Encounter for supervision of normal pregnancy, unspecified, unspecified trimester (principal); N92.6 Irregular menstruation, unspecified | CPT/HCPCS: 80307; 84315; 87086 ==

== ENCOUNTER → 2022-09-06 15:06 | Outpatient (BNVA) | payer OTHER, SELFPAY | PROVIDERS: Visit Provider Obstetrics & Gynecology | DX: Z34.91 Encounter for supervision of normal pregnancy, unspecified, first trimester (principal); Z3A.11 11 weeks gestation of pregnancy | CPT/HCPCS: 76801 ==

== ENCOUNTER → 2022-09-11 10:15 | Outpatient (BNVA) | payer OTHER, SELFPAY | PROVIDERS: Visit Provider Obstetrics & Gynecology | DX: Z34.90 Encounter for supervision of normal pregnancy, unspecified, unspecified trimester (principal) | CPT/HCPCS: 80307; 84315; 85027; 86592; 86762; 86803; 86850; 86900; 87086; 87340; 87491; 87591; 87661; 87806; 88175 ==

== ENCOUNTER → 2022-10-11 16:05 | Outpatient (BNVA) | payer OTHER, SELFPAY | PROVIDERS: Visit Provider Nurse Practitioner Women's Health | DX: Z34.90 Encounter for supervision of normal pregnancy, unspecified, unspecified trimester (principal); R00.2 Palpitations | CPT/HCPCS: 84315; 84443; 85025 ==

== ENCOUNTER → 2022-11-05 07:55 | Outpatient (BNVA) | payer OTHER, SELFPAY | PROVIDERS: PCP Nurse Practitioner Family; Visit Provider Obstetrics & Gynecology | DX: Z34.92 Encounter for supervision of normal pregnancy, unspecified, second trimester (principal); Z3A.20 20 weeks gestation of pregnancy | CPT/HCPCS: 76805 ==

== ENCOUNTER → 2022-12-04 11:07 | Outpatient (BNVA) | payer OTHER, SELFPAY | PROVIDERS: PCP Nurse Practitioner Family; Visit Provider Obstetrics & Gynecology | DX: Z34.92 Encounter for supervision of normal pregnancy, unspecified, second trimester (principal); Z3A.24 24 weeks gestation of pregnancy | CPT/HCPCS: 76816; 82950; 84315 ==

== ENCOUNTER → 2023-01-15 15:10 | Outpatient (BNVA) | payer OTHER, SELFPAY | PROVIDERS: PCP Nurse Practitioner Family; Visit Provider Obstetrics & Gynecology | DX: Z34.90 Encounter for supervision of normal pregnancy, unspecified, unspecified trimester (principal) | CPT/HCPCS: 84315; 85025 ==

== ENCOUNTER → 2023-02-12 10:00 | Outpatient (BNVA) | payer OTHER, SELFPAY | PROVIDERS: PCP Nurse Practitioner Family; Visit Provider Nurse Practitioner Women's Health | DX: Z34.80 Encounter for supervision of other normal pregnancy, unspecified trimester (principal) | CPT/HCPCS: 81000 ==

== ENCOUNTER 2023-02-21 12:54 | Outpatient (CLI) | payer OTHER, SELFPAY ==
--- NOTE | 2023-02-21 13:15 | US_ITS ---
WS: [id number] LIMITED OBSTETRICAL ULTRASOUND HISTORY: Growth scan, small for gestational age. COMPARISON: 09/06/2022, 12/04/2022 Presentation: Vertex. Cervix: Closed and normal length. Placenta: Anterior, no previa or abruption. Grade: 1 HEART: FHR of 150 BPM. measurements: BPD = 9.4 cm = 38w2d; 98th percentile HC = 33.5 cm = 38w2d; 83rd percentile AC = 30.5 cm = 34w3d; 28th percentile FL = 6.8 cm = 34w6d; 24th percentile Amniotic fluid: There are several pockets of amniotic fluid identified. The largest at 3.4 cm. Visual ly the amount of amniotic fluid is normal. EFW: 2653 g; 59th percentile AGA by ultrasound: 36w3d JORGE by ultrasound: 03/18/2023 Biometry remains within 10 days of the age determined during the first trimester ultrasound. BPD is m easuring at the 98th percentile. US/US OB limited [id number] IMPRESSION: 1. Single intrauterine gestation of 36 weeks 3 days and JORGE of 03/18/2023. Appr opriate growth since the first trimester ultrasound. 2. BPD at the 98th percentile. The remaining biometry is normal. 3. Estimated weight at the 59th percentile for age. 4. Normal amniotic fluid.
== END 2023-02-21 12:55 | disposition home or self-care (01) ==
PROVIDERS: PCP Nurse Practitioner Family; Visit Provider Nurse Practitioner Women's Health
DX: O36.5930 Maternal care for other known or suspected poor fetal growth, third trimester, not applicable or unspecified (principal); Z3A.36 36 weeks gestation of pregnancy
CPT/HCPCS: 76815

== ENCOUNTER → 2023-02-26 08:46 | Outpatient (BNVA) | payer OTHER, BC, SELFPAY | PROVIDERS: PCP Nurse Practitioner Family; Visit Provider Obstetrics & Gynecology | DX: Z34.80 Encounter for supervision of other normal pregnancy, unspecified trimester (principal) | CPT/HCPCS: 84315; 87081 ==

== ENCOUNTER 2023-03-21 10:51 | Outpatient (CLI) | payer OTHER, SELFPAY ==
[2023-03-21] VITALS (22 sets, daily range): BP systolic 99–111; BP diastolic 60–78; PULSE 75–157; TEMP 36.5; O2SAT 92–100; BMI 26.9
[2023-03-21] MEDS: lactated ringers 1,000 ML 999 ML IV (11:29)
== END 2023-03-21 12:55 | disposition home or self-care (01) ==
LOC: OPOB 10:58 → OBGYN 11:00
PROVIDERS: PCP Nurse Practitioner Family; Visit Provider Obstetrics & Gynecology
DX: O47.9 False labor, unspecified (principal); Z3A.00 Weeks of gestation of pregnancy not specified
CPT/HCPCS: 36415; 59025; 84315; 99211; J7120

== ENCOUNTER → 2023-03-25 08:39 | Outpatient (BNVA) | payer OTHER, SELFPAY | PROVIDERS: PCP Nurse Practitioner Family; Visit Provider Obstetrics & Gynecology | DX: Z34.80 Encounter for supervision of other normal pregnancy, unspecified trimester (principal) | CPT/HCPCS: 76819; 81000 ==

== ENCOUNTER 2023-03-26 19:01 | Inpatient (IN) | payer OTHER, SELFPAY ==
[2023-03-26] VITALS (11 sets, daily range): BP systolic 105–118; BP diastolic 59–76; PULSE 71–99; RESP 17; TEMP 36.3–36.5; BMI 28.2
[2023-03-26] MEDS: miSOPROStol 100 mcg tablet 25 MCG VAGINAL ×2 (16:00→20:34)
[2023-03-26 17:22] LABS: Basophils % 0.3 %; Eosinophils # 0.1 10^3/uL (0.0-0.8); Eosinophils % 1.2 %; Hematocrit 33.6 % (37.0-47.0); Hemoglobin 11.2 g/dL (11.5-15.3); Lymphocytes # 2.1 10^3/uL (0.8-4.8); Lymphocytes % 21.2 %; Mean Corpuscular HGB Conc 33.3 g/dL (30.0-36.0); Mean Corpuscular Hemoglobin 30.2 pg (28.0-34.0); Mean Corpuscular Volume 90.6 fl (81-99); Monocytes # 0.6 10^3/uL (0.2-0.9); Monocytes % 5.6 %; Neutrophils # 6.97 10^3/uL (1.8-7.7); Neutrophils % 71.3 %; Nucleated Red Blood Cells % 0 %; Platelet Count 161 10^3/cmm (130-400); Red Blood Count 3.71 10^6/uL (4.1-5.3); Red Cell Distribution Width 12.7 % (12.1-15.1); White Blood Count 9.8 10^3/uL (4.0-10.0)
[2023-03-27] VITALS (50 sets, daily range): BP systolic 91–143; BP diastolic 53–84; PULSE 54–125; RESP 18; TEMP 36.1–36.6; O2SAT 89–100
[2023-03-27] MEDS: miSOPROStol 100 mcg tablet 25 MCG VAGINAL (01:22)
[2023-03-27] MEDS: lactated ringers 1,000 ML 999 ML IV ×2 (06:22→07:23)
[2023-03-27] MEDS: ROPivacaine syringe 100 MG/50 ML SYRINGE 10 MG EPIDURAL ×2 (07:12→11:39)
--- NOTE | 2023-03-27 07:49 | ANES.PREANE2 ---
Pre-Anesthetic Assessment Height/Weight: Height 1.68 m Weight 79.379 kg Temp Pulse Resp BP Pulse Ox O2 Del Method 97.2 F L 57 L 17 109/58 100 Room Air 03/27/23 04:22 03/27/23 07:42 03/26/23 16:00 03/27/23 07:42 03/27/23 07:23 03/26/23 18:05 epidural Familial anesthetic complications: None Was Beta Naihd taken within 24 hours: N/A Was Clonidine taken within 24 hours: N/A Social No alcohol and No tobacco Exam alert, oriented x 3, clear to auscultation bilaterally and regular rate & rhythm Airway Mallampati: Class I Dentition: full Anesthetic Plan ASA status: 2 Anesthesia: Regional (specify below) Risk of > 500 ml blood loss (7ml/kg in children): Yes, adequate IV access and fluids planned Medications/Allergies Home Medications Medication Instructions Recorded Confirmed Last Taken Type prenat.vits,karla,bzf-unka-jecls 1 tab PO DAILY 02/12/23 03/25/23 Unknown History pantoprazole 20 mg tablet,delayed 20 mg PO DAILY 02/26/23 03/25/23 Unknown History release Allergies Allergy/AdvReac Type Severity Reaction Status Date / Time doxycycline AdvReac Severe severe Verified 03/21/23 10:09 Nausea and diarrhea Current Medications Generic Name Dose Route Start Last Admin Trade Name Freq PRN Reason Stop Dose Admin Lactated Ringer's 1,000 mls @ 999 mls/hr 03/26/23 19:04 03/27/23 07:23 Lactated Ringers IV 999 mls/hr .Q1H1M PRN Administration See label comments Ropivacaine 100 mg in 50 mls @ 10 mls/hr 03/26/23 19:15 03/27/23 07:12 Naropin Syringe EPIDURAL 10 mls/hr .Q5H VIKASH Administration PFSH Anesthesia Medical History No pertinent past medical history Denies history of: hypertension, diabetes, heart, lung, liver, kidney, thyroid, genital herpes, bleeding problems, or clotting problems PMD: Dr. Serrano Surgical History No history of previous surgery Family History Denies family history of Colon cancer Ovarian cancer Diabetes Heart disease Hyperlipidemia Breast cancer Hypertension Uterine cancer Thyroid condition Stroke Social History Smoking and tobacco status: never smoked Second hand smoke exposure: No Alcohol intake: never Substance/Drug Use: never Female Reproductive History : 3 Data Anesthesia 03/26/23 16:30 Short CBC 03/26/23 Range/Units 16:30 WBC 9.8 (4.0-10.0) 10^3/uL Hgb 11.2 L (11.5-15.3) g/dL Hct 33.6 L (37.0-47.0) % MCV 90.6 (81-99) fl Plt Count 161 (130-400) 10^3/cmm Neut % (Auto) 71.3 % Neut # (Auto) 6.97 (1.8-7.7) 10^3/uL Cardiac Studies: No Data to Display
--- NOTE | 2023-03-27 07:51 | ANES.PROC ---
Anesthesia Procedures Procedure/Date: 03/27/23 Epidural: Time Out Performed: Yes Consents Signed: Procedure Consent Consent: requested by attending/covering physician, from patient, from other and risks and benefits reviewed Lumbar Level: L3-L4 Epidural position: sitting Epidural procedure: sterile prep of area, 1% lidocaine to numb the area, 18 g needle, negative for paresthesia passed, neg for paresthesia, test dose given, 1.5% xylocaine 1:200k epi (5 cc), 0.2% Ropivacaine bolus ml (5 ), placed PCEA, no systemic response, sterile dressing applied, L.U.D. no apparent complications and 0.2% Ropiavacaine @ mls/hr (10) Additional Comments: HARPAL at 4.5 cm, threaded to 10.5 cm
--- NOTE | 2023-03-27 07:55 | PM.OPHPUD ---
Labor & Delivery H&P Update Date of Procedure: March 27, 2023 Date H&P Performed: 03/25/23 H&P update information: I have reviewed H&P completed within last 30 days, I have examined patient prior to procedure and No changes to prior documentation Admission Diagnosis:
[2023-03-27] MEDS: dextrose 5%-lactated ringers 1,000 ML 125 ML IV (08:53)
[2023-03-27] MEDS: oxytocin 30 UNIT/500 ML BAG IV (11:02)
--- NOTE | 2023-03-27 13:58 | P.PCNOB_ITS ---
Delivery Note: Date of delivery: March 27, 2023 Pre-delivery diagnoses: Term Post-delivery diagnoses: Term delivered Procedure: Spontaneous vaginal delivery Estimated blood loss (mL): 500 Pre-Delivery Course: The patient is a 22yo at 40+2 weeks EGA who has been receiving care from [facility]. Admitted for elective induction HPI: Received appropriate care. Daily vitamins since start of care. labs have all been normal, including negative for HIV. She was found to negative for Group B Strep from screening at 36 weeks. She has gained approximately 48 lbs throughout the . She denies a history of HTN during . Glucose tolerance screening for gestational diabetes was negative. Delivery: The patient was noted to be complete and pushing, so was placed in the dorsal lithotomy position, prepped and draped in the usual sterile fashion for a vaginal delivery. Pt. Noted to have epidural anesthesia. At 1348 the patient delivered a viable male weighing 4020 g with scores of 8 and 9 at one and five minutes, respectively. The vertex was delivered spontaneously over intact perineum. The patient was asked to push and the head delivered spontaneously in the MARIA ELENA position, over an intact perineum. A nuchal cord was checked and 1 noted, and delivered through around head as necessary. The anterior shoulder delivered easily and the posterior shoulder followed. The remainder of the was easily delivered and the oropharynx and nasopharynx was bulb suctioned. The was noted to have spontaneous cry and spontaneous movement of all four extremities. The cord was clamped x 2 and cut and noted to have 2 arteries and one vein. The was passed to the mother's abdomen where nursing personnel were in attendance. Cord blood sample was then obtained. The placenta delivered intact spontaneously and the uterus was explored. 20 units of Pitocin was placed in the IV bag to firm the uterus. Examination of the cervix and vaginal vault did not reveal any lacerations. A vaginal pack was then placed. Examination of the perineum showed no laceration. The vaginal pack was then removed. The patient tolerated this procedure well, and recovered in L&D with her infant in their LDR room. All sponge and needle counts were correct. Post-Delivery Status: Good and stable History History History 3 Term 2 0 Miscarriages/Ectopic 0 Living Children 2 A&P Assessment and plan (1) Term delivered: Coding Level of Care Code Acute Code for Chg Fwd Diagnoses Term delivered O80
[2023-03-27] MEDS: benzocaine-menthol 78 gm Canister 1 SPRAY TOPICAL (20:07)
[2023-03-27] MEDS: lanolin oint 7 gm 1 APPLIC TOPICAL (20:07)
[2023-03-27] MEDS: docusate sodium 100 mg Capsule PO (20:07)
[2023-03-27] MEDS: ibuprofen 800 mg tablet PO (20:07)
[2023-03-27] MEDS: HYDROcodone-acetaminophen 5-325 mg Tablet PO (23:26)
[2023-03-28 02:45] LABS: Hematocrit 30.3 % (37.0-47.0); Hemoglobin 10.2 g/dL (11.5-15.3); Mean Corpuscular HGB Conc 33.7 g/dL (30.0-36.0); Mean Corpuscular Hemoglobin 30.5 pg (28.0-34.0); Mean Corpuscular Volume 90.7 fl (81-99); Mean Platelet Volume 11.8 fL (7.4-10.4); Platelet Count 155 10^3/cmm (130-400); Red Blood Count 3.34 10^6/uL (4.1-5.3); Red Cell Distribution Width 12.5 % (12.1-15.1); White Blood Count 11.4 10^3/uL (4.0-10.0)
[2023-03-28 05:00] VITALS: BP 97/64; TEMP 36.5
--- NOTE | 2023-03-28 07:35 | ANE.PACU2 ---
Inpatient post-anesthesia follow up: Airway intact: Yes Vital signs: Temperature 97.7 F Pulse Rate 85 Respiratory Rate 18 Blood Pressure 97/64 Pulse Oximetry 100 Oxygen Delivery Me thod Room Air Oxygen Flow Rate Fraction of Inspir ed Oxygen Hydration adequate: Yes Nausea and vomiting: No Pain level: 1 Mental status: Baseline
[2023-03-28] MEDS: prenatal vitamin Capsule 1 CAP PO (09:34)
[2023-03-28] MEDS: ibuprofen 800 mg tablet PO (09:34)
[2023-03-28] MEDS: docusate sodium 100 mg Capsule PO (09:34)
[2023-03-28 10:14] VITALS: BP 101/76
--- NOTE | 2023-03-28 13:25 | P.DS_ITS ---
Discharge Providers WEB SERVICES MANAGER Date of Admission: 03/26/23 19:01 Date of Discharge: 03/28/23 Attending Provider at Admission: Memo Burdick MD Attending Provider at Discharge: Memo Burdick MD Primary WEB SERVICES MANAGER: Memo Burdick MD Primary Care Provider: JESUS Francisco Diagnoses at Discharge Discharge Diagnosis (1) Term delivered: Status: Acute Reason for Visit Reason for Visit: IOL Brief History: Ms. Jung is a 22 year old established patient with an LMP of 06/17/22, an JORGE of 03/24/23 based on her LMP placing her at 40-2/7 weeks admitted for elective induction Hospital Course Hospital Course Mrs. jung 22-year-old female admitted to labor and delivery for elective induction. She progressed to have a spontaneous vaginal delivery without comp lication. and observation was uneventful. She is afebrile and hemodynamically stable day 1. Tolerating diet well. Ambulating without difficulty. She was counseled regarding pelvic rest for 6 weeks (no sex, no tampons, no vaginal douches). Return to the emergency room if any fever, increased bleeding or pain. Information Peripartum Data: Delivery Method: Vaginal Physical Exam Narrative: GA; alert and oriented x 3 HEENT: normal Breasts: engorged Nipples - skin intact Lungs; clear to auscultation Heart: regular rhythm, no murmurs. Abd: Appropriately tender. BS+. Uterine fundus below umbilicus. No Fundal Tenderness. Perineum: normal lochia. Extremities: no edema, no cyanosis, no tenderness. Urinary Catheter Management: Rodriguez: Cath Placed During This Visit: yes Reason for Continuing Indwelling Catheter: Accurate Measurement of Urinary Output in Critically Ill Patients Urinary Catheter Date of Insertion: 03/27/23 Urinary Catheter Time of Insertion: 09:05 History History History 3 Term 2 0 Miscarriages/Ectopic 0 Living Children 2 Discharge Data Studies Completed and Pending Laboratory Results WBC 11.4 10^3/uL (4.0-10.0) H 03/28/23 02:23 RBC 3.34 10^6/uL (4.1-5.3) L 03/28/23 02:23 Hgb 10.2 g/dL (11.5-15.3) L 03/28/23 02:23 Hct 30.3 % (37.0-47.0) L 03/28/23 02: MCV 90.7 fl (81-99) 03/28/23 02: MCH 30.5 pg (28.0-34.0) 03/28/23 02: MCHC 33.7 g/dL (30.0-36.0) 03/28/23 02: RDW 12.5 % (12.1-15.1) 03/28/23 02: Plt Count 155 10^3/cmm (130-400) 03/28/23 02: MPV 11.8 fL (7.4-10.4) H 03/28/23 02:23 Neut % (Auto) 71.3 % 03/26/23 16:30 Lymph % (Auto) 21.2 % 03/26/23 16:30 [place] % (Auto) 5.6 % 03/26/23 16:30 Eos % (Auto) 1.2 % 03/26/23 16:30 Baso % (Auto) 0.3 % 03/26/23 16:30 Neut # (Auto) 6.97 10^3/uL (1.8-7.7) 03/26/23 16:30 Lymph # (Auto) 2.1 10^3/uL (0.8-4.8) 03/26/23 16:30 [place] # (Auto) 0.6 10^3/uL (0.2-0.9) 03/26/23 16:30 Eos # (Auto) 0.1 10^3/uL (0.0-0.8) 03/26/23 16:30 Baso # (Auto) 0.0 10^3/uL (0.0-0.1) 03/26/23 16:30 Nucleated RBC % (auto) 0 % 03/26/23 16:30 Nucleated RBCs # 0.0 /100WBC 03/26/23 16:30 Vitals Last Vital Signs Temp 97.7 F 03/28/23 05:00 Pulse 85 03/27/23 23:45 Resp 18 03/27/23 17:39 BP 101/76 03/28/23 10:14 Pulse Ox 100 03/27/23 07:23 O2 Del Method Room Air 03/28/23 05:00 Discharge Plan Discharge Patient Disposition: Home Condition: Stable Prescriptions: New acetaminophen 325 mg capsule 325 mg PO Q4H PRN (Reason: fever or pain) Qty: 60 0RF docusate sodium [Colace] 100 mg capsule 100 mg PO BID Qty: 60 0RF ferrous sulfate [Iron (ferrous sulfate)] 325 mg (65 mg iron) tablet 325 mg PO BID Qty: 60 0RF ibuprofen 800 mg tablet 800 mg PO TID PRN (Reason: pain) Qty: 60 0RF Continued prenat.vits,karla,hxd-bbsg-bgixt Tablet 1 tab PO DAILY pantoprazole 20 mg tablet,delayed release (DR/EC) 20 mg PO DAILY Discharge Orders: Discharge Order (Routine); Ordered 03/28/23 Ordered By: Memo Burdick Referrals: Memo Burdick MD [Physician] - 2 weeks Discharge Diet: Usual diet Discharge Activity: Limit activity as instructed Patient Instructions: Opioid Safety, Vaginal Delivery (GEN), Your 's Appearance (GEN), Bleeding (GEN), Caring for Your Baby (GEN) Activity Restrictions/Additional Instructions: 1. Please call [facility] clinic on next working day to make your appointment in 6 weeks. 2. Please stay home until you come back to the clinic on first post- hospatilization check up. 3. Please follow instructions on your medications CAREFULLY. 4. If you have abdominal incision, do not cover it unless dressing is necessary because of drainage. OK to shower, but avoid bath. Leave steri-strips until they fall off. If they are still on one week after surgery, you may remove them. 5. If you had vaginal surgery or vaginal repair, Dr. Burdick may instruct you to take SITZ bath. 6. Yellow, blood tinged odorous vaginal discharge is usually normal after hyste rectomy or vaginal surgeries. 7. No SEXUAL INTERCOURSE, tampons, or douches until you are completely released from the post-operative care. 8. Avoid constipation by eating right and maybe using some Metamucil or Milk of Magnesia. 9. All prescription refills are given during the working hours. Please do no wait till it runs out. Call the clinic at [phone] before your medication runs out. The clinic will get in touch with your doctor to prescribe medications if necessary. 10. Please remain within 40 mile radius from our hospital because emergencies do happen now and then during the post-operative period. 11. If you have stairs at home, take one step at a time slowly and minimize the number of trips. It helps to stay in one floor for the next few days. No lifting except what you can lift by one hand until you are released from the post-operative care. 12. Driving is discouraged until you are well healed. It may be 3-4 weeks before you feel strong enough to drive. You should be able to turn and look through the rear window without pain and you should be able to push the brake pedal very hard without pain before you drive. No fast rules, but SAFETY should be your primary concern. DO NOT drive if you are on sedating medications such as narcotics. 13. Call the clinic (during working hours) to make urgent appointment or go to the Emergency room, if any of the following occurs: i. Vaginal bleeding becomes heavy, more than a period. ii. Incision becomes red and sore, or drains pus. iii. Your TEMPERATURE is over 100.4F or you have chill. iv. IV site becomes red and swollen (a little ``knot?? is usually OK) v. Persistent nausea and vomiting vi. Persistent constipation or diarrhea vii. Rash or allergic reaction to medications. Discharge Attestations WEB SERVICES MANAGER Time Spent in Discharge Care*: greater than 30 min Coding Level of Care Code Acute Code for Chg Fwd Diagnoses Term delivered O80
[2023-03-28 14:54] VITALS: BP 108/71; PULSE 69; RESP 15; TEMP 36.7; O2SAT 98
== END 2023-03-28 15:25 | disposition home or self-care (01) | DRG 807 ==
LOC: OPOB 19:04 → OBGYN 19:04
PROVIDERS: Admitting Provider Obstetrics & Gynecology; PCP Nurse Practitioner Family; Visit Provider Obstetrics & Gynecology
DX: O48.0 Post-term pregnancy (principal); Z37.0 Single live birth; Z3A.40 40 weeks gestation of pregnancy; O69.81X0 Labor and delivery complicated by cord around neck, without compression, not applicable or unspecified
CPT/HCPCS: 36415; 51702; 59025; 59409; 85025; 85027; 99211; J2590; J2795; J7120; J7121

== ENCOUNTER → 2023-06-14 16:32 | Outpatient (BNVA) | payer OTHER, SELFPAY | PROVIDERS: PCP Nurse Practitioner Family; Visit Provider Nurse Practitioner Family | DX: R30.0 Dysuria (principal) | CPT/HCPCS: 81000 ==

== ENCOUNTER 2023-09-07 10:50 | Emergency (ER) | payer OTHER, BC, SELFPAY ==
--- NOTE | 2023-09-07 11:14 | W.ED.ABDPA2 ---
HPI - Abdominal Pain General: Chief Complaint: Abdominal Pain Stated Complaint: Abd pain, sent from walk in clinic Time Seen by Provider: 09/07/23 11:14 History of Present Illness: 23yo female that presents to the emergency department after being seen at the walk-in clinic earlier today. She states she was advised to come to the emergency department for additional evaluation for her right lower quadrant abdominal pain that has been intermittent for the previous 4 days. She describes the pain as a sharp stabbing type pain that is a 5 out of 10 when it does occur. She states she also had nausea throughout the evening and this morning without vomiting. She also states that she had a single episode of watery diarrhea earlier this morning. She states that she did take her temperature last night and it was 99.9 ?F. She states she was sent here to the emergency department for concerns of an acute appendicitis. Associated Symptoms: Reports diarrhea and nausea Review of Systems General: Reports: 10 or more systems reviewed and unremarkable except in HPI and below GI: Reports: abdominal pain, nausea and diarrhea [facility] ED PFSH: Medical History Oral contraception initial prescription No pertinent past medical history Denies history of: hypertension, diabetes, heart, lung, liver, kidney, thyroid, genital herpes, bleeding problems, or clotting problems PMD: Dr. Serrano Surgical History No history of previous surgery Family History Denies family history of Colon cancer Ovarian cancer Diabetes Heart disease Hyperlipidemia Breast cancer Hypertension Uterine cancer Thyroid disease Stroke Social History Smoking and tobacco/nicotine status: never used tobacco/nicotine Second hand smoke exposure: No Alcohol intake: never Substance/Drug Use: never Physical Exam Narrative: EXAM NARRATIVE: Constitutional: the patient appears well nourished and of normal development. Vital signs as documented. No acute distress at present. Alert and oriented-to person, place, time and situation. Head, eyes, ears, nose, mouth, throat: Normocephalic, atraumatic. Pupils-equal, round, reactive to light. No scleral icterus. Normal-appearing external ears. Normal appearing nasal turbinates, no drainage. No obvious oral lesions, posterior oropharynx without erythema or exudates. Neck: Supple, trachea is midline, no lymphadenopathy, no jugular venous distension, thyromegaly, or carotid bruits. Carotid upstrokes are brisk bilaterally. Lungs: clear to auscultation to all lung rausch. Symmetrical rise and fall of chest, no obvious signs of increased work of breathing at present. Cardiac: Regular rate and rhythm, positive S1, S2. No murmurs, rubs or gallops that I can appreciate Abdomen: Soft, right and left lower quadrant of the abdomen are slightly tender to palpation, normal active bowel sounds to all quadrants. No palpable masses, no organomegaly and abdominal bruits. Extremities: 2+ pulses in the upper extremities that are equal bilaterally, 2+ pulses in the lower extremities that are equal bilaterally. Non-edematous. Moves all extremities well, sensation to all extremities are noted. Skin: Warm, dry, intact. Course Vital Signs: Vital signs: Vital Signs Temperature 98.1 F 09/07/23 11:58 Pulse Rate 72 09/07/23 14:29 Respiratory Rate 15 09/07/23 11:58 Blood Pressure 93/53 09/07/23 14:29 Pulse Oximetry 100 09/07/23 14:29 Oxygen Delivery Me thod Room Air 09/07/23 14:29 MDM - Abdominal Pain Medical Decision Making 23-year-old female seen by the walk-in clinic referred to the emergency department for additional evaluation secondary to right lower quadrant abdominal pain we will obtain CBC and CMP as well as urinalysis and urine hCG and provide the patient with a CT scan of her abdomen pelvis to rule out acute appendicitis, gastroenteritis, UTI, pyelonephritis, and constipation. Medical Records I reviewed the patient's medical records. Lab Data I reviewed the patient's lab results. 09/07/23 13:08 09/07/23 13:08 Labs/Radiology: Radiology Impressions Abdomen/Pelvis CT 09/07/23 12:51 IMPRESSION: No acute findings. Laboratory Results WBC 8.00 10^3/uL (3.29-11.43) 09/07/23 13:08 RBC 4.73 10^6/uL (3.85-5.65) 09/07/23 13:08 Hgb 13.50 g/dL (11.27-16.99) 09/07/23 13:08 Hct 41.7 % (36-47) 09/07/23 13:08 MCV 88.2 fl (85-98) 09/07/23 13:08 MCH 28.5 pg (27-33) 09/07/23 13:08 MCHC 32.4 g/dL (30-55) 09/07/23 13:08 RDW 11.9 % (12.1-15.1) L 09/07/23 13:08 Plt Count 253 10^3/cmm (157-399) 09/07/23 13:08 MPV 10.8 fL (7.4-10.4) H 09/07/23 13:08 Neut % (Auto) 59.1 % 09/07/23 13:08 Lymph % (Auto) 32.6 % 09/07/23 13:08 [place] % (Auto) 5.6 % 09/07/23 13:08 Eos % (Auto) 2.0 % 09/07/23 13:08 Baso % (Auto) 0.6 % 09/07/23 13:08 Neut # (Auto) 4.72 10^3/uL (1.8-7.7) 09/07/23 13:08 Lymph # (Auto) 2.6 10^3/uL (0.8-4.8) 09/07/23 13:08 [place] # (Auto) 0.5 10^3/uL (0.2-0.9) 09/07/23 13:08 Eos # (Auto) 0.2 10^3/uL (0.0-0.8) 09/07/23 13:08 Baso # (Auto) 0.1 10^3/uL (0.0-0.1) 09/07/23 13:08 Nucleated RBC % (auto) 0 % 09/07/23 13:08 Nucleated RBCs # 0.0 /100WBC 09/07/23 13:08 Sodium 143 mmol/L (136-145) 09/07/23 13:08 Potassium 3.4 mmol/L (3.5-5.1) L 09/07/23 13:08 Chloride 107 mmol/L (98-107) 09/07/23 13:08 Carbon Dioxide 22 mmol/L (22-29) 09/07/23 13:08 Anion Gap 17.4 (5-19) 09/07/23 13:08 BUN 16 mg/dL (6-20) 09/07/23 13:08 Creatinine 0.4 mg/dL (0.5-0.9) L 09/07/23 13:08 GFR Calculation 194.5 mL/min (90-130) H 09/07/23 13:08 Glucose 78 mg/dL (65-115) 09/07/23 13:08 Calculated Osmolality 296 mOsm/kg (285-295) H 09/07/23 13:08 Calcium 9.5 mg/dL (8.5-10.5) 09/07/23 13:08 Total Bilirubin 1.5 mg/dL (0.15-1.2) H 09/07/23 13:08 AST 18 U/L (0-32) 09/07/23 13:08 ALT 15 U/L (0-33) 09/07/23 13:08 Alkaline Phosphatase 111 U/L (35-105) H 09/07/23 13:08 Total Protein 8.0 g/dL (6.6-8.7) 09/07/23 13:08 Albumin 4.4 g/dL (3.5-5.2) 09/07/23 13:08 Globulin 3.6 g/dL (1.3-4.6) 09/07/23 13:08 Lipase 19 U/L (13-60) 09/07/23 13:08 HCG, Qual Negative (Negative) 09/07/23 12:59 Urine Color Yellow (Yellow) 09/07/23 12:59 Urine Appearance Hazy (CLEAR) A 09/07/23 12:59 Urine pH 6.5 (5-7) 09/07/23 12:59 Ur Specific [place] 1.015 (1.005-1.030) 09/07/23 12:59 Urine Protein 2+ (Negative) H 09/07/23 12:59 Urine Glucose (UA) Norm (Normal) 09/07/23 12:59 Urine Ketones 1+ (Negative) H 09/07/23 12:59 Urine Blood Neg (Negative) 09/07/23 12:59 Urine Nitrate Negative (Negative) 09/07/23 12:59 Urine Bilirubin Neg (Negative) 09/07/23 12:59 Urine Urobilinogen Norm mg/dL (Negative) 09/07/23 12:59 Ur Leukocyte Esterase Trace (Negative) H 09/07/23 12:59 Urine RBC None /hpf (0-2) 09/07/23 12:59 Urine WBC 5-10 /hpf (0-5) H 09/07/23 12:59 Ur Squamous Epith Cells 10-15 /hpf (0-5) H 09/07/23 12:59 Amorphous Sediment Not Reportable 09/07/23 12:59 Urine Bacteria 1+ /hpf (NONE) H 09/07/23 12:59 Urine Mucus 1+ /hpf 09/07/23 12:59 All radiology interpretation(s) finalized by discharge Discharge Plan Discharge Patient Disposition: Home Clinical Impression: Abdominal pain, UTI (urinary tract infection) Condition: Stable Prescriptions: New Bactrim DS 800-160 mg tablet 1 tab PO BID 5 Days Qty: 10 0RF No Action norethindrone (contraceptive) 0.35 mg tablet 0.35 mg PO BEDTIME Discharge Orders: Discharge ED (Routine); Ordered 09/07/23 Ordered By: Jaspal Quintana Referrals: Rachel Carver FNP [Primary Care Provider] - Discharge Diet: Advance as tolerated Discharge Activity: Resume usual activity Patient Instructions: Abdominal Pain (ED), Opioid Safety, Pain Management Activity Restrictions/Additional Instructions: Activity Restrictions/Additional Instructions: Thank you for choosing [facility] for your healthcare needs today. Please realize that you were seen in the Emergency Department and that we are providing you with an emergency medical screening exam and this may not be a complete and all inclusive of all the testing and or medical work-up that you may need to determine your ailment or severity of your illness. It is very important that you follow-up as instructed with your Primary care provider or Specialist for additional evaluation and to discuss your medical treatment plan. You may return to the Emergency Department should you have concerns or if your condition changes or worsens in any way. Coding Level of Care Code ED Tucking Machine Operator for Michel Sapp
[2023-09-07 11:58] VITALS: BP 122/82; PULSE 83; RESP 15; TEMP 36.7; O2SAT 96
--- NOTE | 2023-09-07 12:51 | CTR_ITS ---
PROCEDURE INFORMATION: Exam: CT Abdomen And Pelvis With Contrast Exam date and time: 09/07/2023 1:42 PM Age: 23 years old Clinical indication: Abdominal pain; Localized; Right lower quadrant (rlq); Additional info: Right lower quadrant abdominal pain TECHNIQUE: Imaging protocol: Computed tomography of the abdomen and pelvis with contrast. Radiation optimization: All CT scans at this facility use at least one of these dose optimization techniques: automated exposure control; mA and/or kV adjustment per patient size (includes targeted exams where dose is matched to clinical indication); or iterative reconstruction. Contrast material: OMNI 350; Contrast volume: 100 ml; Contrast route: INTRAVENOUS (IV); COMPARISON: US OB BPP wo NST [id number] 03/25/2023 8:40 AM RADIATION DOSE METRICS: Total DLP (mGy-cm): 335.68 FINDINGS: Lungs: Lung bases are clear. No pleural effusion. Liver: Normal. No mass. Gallbladder and bile ducts: Normal. No calcified stones. No ductal dilation. Pancreas: Normal. No ductal dilation. Spleen: Normal. No splenomegaly. Adrenal glands: Normal. No mass. Kidneys and ureters: Normal. No hydronephrosis. Stomach and bowel: Unremarkable. No obstruction. No mucosal thickening. Appendix: No evidence of appendicitis. The appendix is normal. Intraperitoneal space: Unremarkable. No free air. No significant fluid collection. Vasculature: Unremarkable. No abdominal aortic aneurysm. Lymph nodes: Unremarkable. No enlarged lymph nodes. Urinary bladder: Unremarkable as visualized. Reproductive: Unremarkable as visualized. Bones/joints: Unremarkable. No acute fracture. Soft tissues: Unremarkable. CT/CT abdomen pelvis w con* [id number] IMPRESSION: No acute findings.
[2023-09-07 13:21] LABS: HCG Qualitative Urine. Negative (Negative)
[2023-09-07 13:27] LABS: Basophils # 0.1 10^3/uL (0.0-0.1); Basophils % 0.6 %; Eosinophils # 0.2 10^3/uL (0.0-0.8); Hematocrit 41.7 % (36-47); Lymphocytes # 2.6 10^3/uL (0.8-4.8); Lymphocytes % 32.6 %; Mean Corpuscular HGB Conc 32.4 g/dL (30-55); Mean Corpuscular Hemoglobin 28.5 pg (27-33); Mean Corpuscular Volume 88.2 fl (85-98); Mean Platelet Volume 10.8 fL (7.4-10.4); Monocytes # 0.5 10^3/uL (0.2-0.9); Monocytes % 5.6 %; Neutrophils # 4.72 10^3/uL (1.8-7.7); Neutrophils % 59.1 %; Nucleated Red Blood Cells % 0 %; Platelet Count 253 10^3/cmm (157-399); Red Blood Count 4.73 10^6/uL (3.85-5.65); Red Cell Distribution Width 11.9 % (12.1-15.1)
[2023-09-07] MEDS: iohexol 350 mg/mL 500 mL Btl (per mL) IV (13:45)
[2023-09-07 13:46] LABS: Glucose Urine UA Norm (Normal); Ketones Urine 1+ (Negative); Protein Urine 2+ (Negative); Specific Gravity, Urine 1.015 (1.005-1.030); Urine Appearance Hazy (CLEAR); Urine Color Yellow (Yellow); pH Urine 6.5 (5-7)
[2023-09-07 13:47] LABS: Add Urine Culture? No; Add Urine Microscopic? YES; Bacteria Urine 1+ /hpf; Bilirubin Urine Neg (Negative); Blood Urine Neg (Negative); Leukocyte Esterase Urine Trace (Negative); Mucus Urine 1+ /hpf; Nitrate Urine Negative (Negative); Urobilinogen Urine Norm (Negative)
[2023-09-07 13:51] LABS: Alanine Aminotransferase 15 U/L (0-33); Albumin Level 4.4 g/dL (3.5-5.2); Alkaline Phosphatase 111 U/L (35-105); Anion Gap 17.4 (5-19); Aspartate Amino Transferase 18 U/L (0-32); Blood Urea Nitrogen 16 mg/dL (6-20); Calcium 9.5 mg/dL (8.5-10.5); Carbon Dioxide 22 mmol/L (22-29); Chloride 107 mmol/L (98-107); Creatinine Clr Calc Pharmacy 200.8179; Globulin 3.6 g/dL (1.3-4.6); Glomerular Filtration Rate 194.5 mL/min (90-130); Glucose 78 mg/dL (65-115); Lipase 19 U/L (13-60); Osmolality Calculated 296 mOsm/kg (285-295); Potassium 3.4 mmol/L (3.5-5.1); Sodium 143 mmol/L (136-145); Total Bilirubin 1.5 mg/dL (0.15-1.2)
[2023-09-07 14:29] VITALS: BP 93/53; PULSE 72; O2SAT 100
== END 2023-09-07 15:17 | disposition home or self-care (01) ==
PROVIDERS: Emergency Provider Internal Medicine; PCP Nurse Practitioner Family
DX: N39.0 Urinary tract infection, site not specified (principal)
CPT/HCPCS: 74177; 80053; 81001; 81025; 83690; 85025; 99285; Q9967

== ENCOUNTER → 2023-12-17 15:52 | Outpatient (BNVA) | payer OTHER, SELFPAY | PROVIDERS: PCP Nurse Practitioner Family; Visit Provider Nurse Practitioner Family | DX: N39.0 Urinary tract infection, site not specified (principal) | CPT/HCPCS: 81000 ==

== ENCOUNTER → 2024-01-01 17:03 | Outpatient (BNVA) | payer OTHER, SELFPAY | PROVIDERS: PCP Nurse Practitioner Family; Visit Provider Registered Nurse Neonatal Intensive Care | DX: J02.9 Acute pharyngitis, unspecified (principal); J03.80 Acute tonsillitis due to other specified organisms; B96.89 Other specified bacterial agents as the cause of diseases classified elsewhere | CPT/HCPCS: 87880 ==

== ENCOUNTER 2024-01-05 15:15 | Emergency (ER) | payer OTHER, SELFPAY ==
[2024-01-05 15:18] VITALS: BP 112/74; PULSE 109; RESP 15; TEMP 36.8; O2SAT 98
--- NOTE | 2024-01-05 15:24 | CTR_ITS ---
PROCEDURE INFORMATION: Exam: CT Neck With Contrast Exam date and time: 01/05/2024 3:53 PM Age: 23 years old Clinical indication: Painful swallowing and throat pain; Additional info: Pharyngitis, dysphagi, abscess TECHNIQUE: Imaging protocol: Computed tomography of the neck with contrast. Radiation optimization: All CT scans at this facility use at least one of these dose optimization techniques: automated exposure control; mA and/or kV adjustment per patient size (includes targeted exams where dose is matched to clinical indication); or iterative reconstruction. Contrast material: OMNI 350; Contrast volume: 80 ml; Contrast route: INTRAVENOUS (IV); COMPARISON: CR XR chest 1V portable [id number] 08/03/2021 11:22 PM RADIATION DOSE METRICS: Total DLP (mGy-cm): 184.61 FINDINGS: Brain: The visible portion of the brain is normal. Orbital cavities: The orbits are unremarkable. Mastoid air cells: The mastoid air cells are clear. Paranasal sinuses: The paranasal sinuses are clear. Pharynx: The nasopharynx is unremarkable. There is no significant pharyngeal tonsillar enlargement. There is asymmetric left palatine tonsil enlargement there is a subtly hypodense ill-defined 9 x 8 x 6 mm focus in the left palatine tonsil consistent with phlegmon or early abscess. There is edema and trace fluid in the lower left parapharyngeal fat. Right palatine tonsil is normal. The hypopharynx is unremarkable. There is no significant lingual tonsillar enlargement. No airway compromise. Larynx: The larynx and epiglottis are normal. Prevertebral and retropharyngeal spaces: There is no fluid or edema in the retropharyngeal space. Salivary glands: The parotid glands are normal. The submandibular glands are normal. Thyroid: The thyroid gland is unremarkable. Lymph nodes: There are asymmetrically prominent left jugular chain lymph nodes which are likely reactive. Trachea: The visible portion of the trachea is normal. Lungs: Lung apices are clear. Bones/joints: Bones are unremarkable. Vasculature: The carotid and vertebral arteries and internal jugular veins are unremarkable as visualized. Soft tissues: Musculature in the neck is unremarkable. CT/CT neck w con* [id number] IMPRESSION: 1. Left palatine tonsillitis. 2. Tiny phlegmon or abscess in the left palatine tonsil measures less than 1 cc volume. Trace left peritonsillar edema and fluid. No peritonsillar abscess. 3. No airway compromise. 4. Mild asymmetric left jugular chain lymph node enlargement is likely reactive.
[2024-01-05 15:36] LABS: Basophils % 0.5 %; Eosinophils # 0.1 10^3/uL (0.0-0.8); Eosinophils % 1.2 %; Hematocrit 35.8 % (36-47); Lymphocytes # 2.2 10^3/uL (0.8-4.8); Lymphocytes % 33.2 %; Mean Corpuscular HGB Conc 32.4 g/dL (30-55); Mean Corpuscular Hemoglobin 28.6 pg (27-33); Mean Corpuscular Volume 88.2 fl (85-98); Monocytes # 0.5 10^3/uL (0.2-0.9); Monocytes % 7.8 %; Neutrophils # 3.75 10^3/uL (1.8-7.7); Nucleated Red Blood Cells % 0 %; Platelet Count 219 10^3/cmm (157-399); Red Blood Count 4.06 10^6/uL (3.85-5.65); Red Cell Distribution Width 12.4 % (12.1-15.1); White Blood Count 6.57 10^3/uL (3.29-11.43)
--- NOTE | 2024-01-05 15:36 | ED_ITS ---
HPI - General Adult 2 General: Chief complaint: General Medical Stated complaint: throat pains, sent by walk-in clinic Time Seen by Provider: 01/05/24 15:24 Source: patient Mode of arrival: ambulatory History of Present Illness: 23-year-old female presents emergency ro om at the direction of the walk-in clinic. She presents with complaint of sore throat and difficulty swallowing. She was seen earlier in the week had a strep test done that was negative was started on amoxicillin seem to getting Gatter and then worsened again yesterday. Subjective fever difficulty swallowing no vomiting. Onset (ago): day(s) Severity: mild Relieving factors: none Exacerbating factors: none Associated symptoms: Deny chest pain, confusion, cough, diaphoresis, decreased appetite, dyspnea, fevers/chills, headache(s), malaise, nausea, rash, palpitations, seizures, short of breath, syncope, vomiting or weakness Treatments prior to arrival: none Review of Systems 2 Const: Denies: fever(s), chills, malaise or diaphoresis ENMT: Reports: throat pain Card: Denies: chest pain, palpitations or syncope Resp: Denies: dyspnea GI: Denies: abdominal pain, nausea or vomiting : Denies: dysuria, urinary frequency or urinary urgency Musc: Denies: neck pain or back pain Skin/Breast: Denies: rash Neuro: Denies: headache(s) or confusion PFSH ED 2 PFSH: Medical History Oral contraception initial prescription No pertinent past medical history Denies history of: hypertension, diabetes, heart, lung, liver, kidney, thyroid, genital herpes, bleeding problems, or clotting problems PMD: Dr. Serrano Surgical History No history of previous surgery Family History Denies family history of Colon cancer Ovarian cancer Diabetes Heart disease Hyperlipidemia Breast cancer Hypertension Uterine cancer Thyroid disease Stroke Social History Smoking and tobacco/nicotine status: never used tobacco/nicotine Second hand smoke exposure: No Alcohol intake: never Substance/Drug Use: never Female Reproductive History: Date of last menstrual period: 11/03/23 Physical Exam 2 Const: COMMON NORMALS: no acute distress GENERAL APPEARANCE: cooperative and comfortable ORIENTATION/CONSCIOUSNESS: Yes awake, Yes oriented to person, Yes oriented to place and Yes oriented to time HENMT: COMMON NORMALS: normocephalic, atraumatic and hearing grossly normal bilaterally HEAD & SCALP: normocephalic and atraumatic OTHER: Left peritonsillar fullness with some swelling in the submandibular region exquisitely tender cervical lymph nodes. Resp: COMMON NORMALS: normal respiratory effort, No retractions, No use of accessory muscles and clear to auscultation bilaterally AUSCULTATION: clear to auscultation bilaterally Cardio: COMMON NORMALS: regular rate, regular rhythm and No murmurs present (Cardio) RATE: regular rate RHYTHM: regular rhythm GI: COMMON NORMALS: Soft to palpation and No hepatosplenomegaly present A USCULTATION: Yes normoactive bowel sounds PALPATION: Yes Soft to palpation, No Tenderness to palpation present (GI), No Guarding due to palpation present (GI) and Yes No hepatosplenomegaly present Extremity: COMMON NORMALS: normal to inspection, capillary refill normal, no clubbing, cyanosis or edema, no calf tenderness and no pedal edema Neuro: SENSORIUM/ORIENTATION: Yes oriented to person, Yes oriented to place and Yes oriented to time Skin: COMMON NORMALS: no rashes or lesions noted GENERAL SKIN EXAM: no rashes or lesions noted Course 2 Vital Signs: Vital signs: Vital Signs Temperature 98.2 F 01/05/24 15:18 Pulse Rate 95 01/05/24 16:30 Respiratory Rate 15 01/05/24 15:18 Blood Pressure 111/75 01/05/24 16:30 Pulse Oximetry 100 01/05/24 16:30 Oxygen Delivery Me thod Room Air 01/05/24 16:30 MDM - General Adult Medical Decision Making CT of the neck shows a very small pharyngeal abscess approximately [address] Beltre on-call he concurs with changing to Augmentin and adding a steroid taper. He recommends giving dexamethasone and Rocephin in the emergency room he will see the patient tomorrow for follow-up. Medical Records I reviewed the patient's medical records. Lab Data I reviewed the patient's lab results. 01/05/24 15:31 01/05/24 15:[address] 01/05/24 15: IMPRESSION: 1. Left palatine tonsillitis. 2. Tiny phlegmon or abscess in the left palatine tonsil measures less than 1 cc volume. Trace left peritonsillar edema and fluid. No peritonsillar abscess. 3. No airway compromise. 4. Mild asymmetric left jugular chain lymph node enlargement is likely reactive. Laboratory Results WBC 6.57 10^3/uL (3.29-11.43) 01/05/24 15: RBC 4.06 10^6/uL (3.85-5.65) 01/05/24 15: Hgb 11.60 g/dL (11.27-16.99) 01/05/24 15: Hct 35.8 % (36-47) L 01/05/24 15: MCV 88.2 fl (85-98) 01/05/24 15: MCH 28.6 pg (27-33) 01/05/24 15: MCHC 32.4 g/dL (30-55) 01/05/24 15: RDW 12.4 % (12.1-15.1) 01/05/24 15: Plt Count 219 10^3/cmm (157-399) 01/05/24 15: MPV 10.0 fL (7.4-10.4) 01/05/24 15: Neut % (Auto) 57.0 % 01/05/24 15: Lymph % (Auto) 33.2 % 01/05/24 15: Assumption % (Auto) 7.8 % 01/05/24 15: Eos % (Auto) 1.2 % 01/05/24 15: Baso % (Auto) 0.5 % 01/05/24 15: Neut # (Auto) 3.75 10^3/uL (1.8-7.7) 01/05/24 15: Lymph # (Auto) 2.2 10^3/uL (0.8-4.8) 01/05/24 15: Assumption # (Auto) 0.5 10^3/uL (0.2-0.9) 01/05/24 15: Eos # (Auto) 0.1 10^3/uL (0.0-0.8) 01/05/24 15:31 Baso # (Auto) 0.0 10^3/uL (0.0-0.1) 01/05/24 15:31 Nucleated RBC % (auto) 0 % 01/05/24 15:31 Nucleated RBCs # 0.0 /100WBC 01/05/24 15:31 Sodium 141 mmol/L (136-145) 01/05/24 15:31 Potassium 3.6 mmol/L (3.5-5.1) 01/05/24 15:31 Chloride 106 mmol/L (98-107) 01/05/24 15:31 Carbon Dioxide 23 mmol/L (22-29) 01/05/24 15:31 Anion Gap 15.6 (5-19) 01/05/24 15:31 BUN 11 mg/dL (6-20) 01/05/24 15:31 Creatinine 0.4 mg/dL (0.5-0.9) L 01/05/24 15:31 GFR Calculation 194.5 mL/min (90-130) H 01/05/24 15:31 Glucose 94 mg/dL (65-115) 01/05/24 15:31 Calculated Osmolality 291 mOsm/kg (285-295) 01/05/24 15:31 Calcium 8.8 mg/dL (8.5-10.5) 01/05/24 15:31 Total Bilirubin 0.8 mg/dL (0.15-1.2) 01/05/24 15:31 AST 17 U/L (0-32) 01/05/24 15:31 ALT 12 U/L (0-33) 01/05/24 15:31 Alkaline Phosphatase 85 U/L (35-105) 01/05/24 15:31 Total Protein 7.7 g/dL (6.6-8.7) 01/05/24 15:31 Albumin 4.0 g/dL (3.5-5.2) 01/05/24 15:31 Globulin 3.7 g/dL (1.3-4.6) 01/05/24 15:31 Monoscreen Negative (Negative) 01/05/24 15:31 All radiology interpretation(s) finalized by discharge Discharge Plan Discharge Patient Disposition: Home Clinical Impression: Pharyngeal abscess Condition: Stable Prescriptions: New prednisone 20 mg tablet 20 mg PO TID Qty: 15 0RF Rx Instructions: 1 p.o. 3 times daily x3 days, 1 p.o. twice daily x2 days, 1 p.o. daily x2 days Augmentin XR 1,000-62.5 mg tablet extended release 12 hr 1 tab PO Q12H 10 Days Qty: 20 0RF No Action amoxicillin 500 mg tablet 500 mg PO BID 10 Days Qty: 20 0RF norethindrone (contraceptive) 0.35 mg tablet 0.35 mg PO DAILY Discharge Orders: Discharge ED (Routine); Ordered 01/05/24 Ordered By: Ponce Jamison Referrals: Rachel Carver FNP [Primary Care Provider] - Patient Instructions: Opioid Safety, Pain Management Activity Restrictions/Additional Instructions: Thank you for choosing [facility] for your healthcare needs today. Please realize this is an emergency room and that we are providing you with a medical screening exam and this may not be complete and all inclusive of all the testing and or work up that you may need to determine your ailment or severity of your illness. It is very important that you follow up as instructed or that you return to the Emergency Department should you have concerns or if your condition changes or worsens in any way. You were seen today for possible pharyngeal abscess. You have a very tiny pharyngeal abscess on the CT does not require surgical intervention at this point. We discussed with the on-call ear nose and throat physician he recommends changing you from amoxicillin to Augmentin and adding prednisone. You were given a dose of antibiotics in the emergency room and a first dose of steroids here as well. You can start the oral prednisone tomorrow. Case management will contact you to make arrangements for follow-up with the ear nose and throat physician in the office. Return if you have further problems. Coding Level of Care Code ED Ux Specialist for Michel Sapp
[2024-01-05 15:53] LABS: Alanine Aminotransferase 12 U/L (0-33); Alkaline Phosphatase 85 U/L (35-105); Anion Gap 15.6 (5-19); Aspartate Amino Transferase 17 U/L (0-32); Blood Urea Nitrogen 11 mg/dL (6-20); Calcium 8.8 mg/dL (8.5-10.5); Carbon Dioxide 23 mmol/L (22-29); Chloride 106 mmol/L (98-107); Globulin 3.7 g/dL (1.3-4.6); Glomerular Filtration Rate 194.5 mL/min (90-130); Glucose 94 mg/dL (65-115); Osmolality Calculated 291 mOsm/kg (285-295); Potassium 3.6 mmol/L (3.5-5.1); Sodium 141 mmol/L (136-145); Total Bilirubin 0.8 mg/dL (0.15-1.2); Total Protein 7.7 g/dL (6.6-8.7)
[2024-01-05] MEDS: iohexol 350 mg/mL 500 mL Btl (per mL) IV (15:55)
[2024-01-05 15:57] LABS: Monoscreen Negative (Negative)
[2024-01-05 16:00] LABS: Creatinine Clr Calc Pharmacy 200.8179
[2024-01-05 16:01] LABS: Slide Review Slide Review Perform
[2024-01-05 16:30] VITALS: BP 111/75; PULSE 95; O2SAT 100
--- NOTE | 2024-01-05 17:21 | DCPLANNER ---
Sent Followup request to ENT clinic 01/05/24 1552
[2024-01-05] MEDS: cefTRIAXone 1,000 MG in sodium chloride 0.9% (plus) 50 ML 100 MG IV (17:22)
[2024-01-05] MEDS: sodium chloride 0.9% 1,000 ML 999 ML IV (17:22)
[2024-01-05] MEDS: dexamethasone 10 mg/mL INJ IV (17:24)
[2024-01-05 18:27] VITALS: BP 103/68; PULSE 83; O2SAT 99
== END 2024-01-05 18:29 | disposition home or self-care (01) ==
PROVIDERS: Emergency Provider Family Medicine; PCP Nurse Practitioner Family
DX: J39.1 Other abscess of pharynx (principal)
CPT/HCPCS: 70491; 80053; 85025; 86308; 96365; 96375; 99285; J0696; J1100; J7030; Q9967

== ENCOUNTER → 2024-06-24 14:51 | Outpatient (BNVA) | payer OTHER, SELFPAY | PROVIDERS: PCP Nurse Practitioner Family; Visit Provider Nurse Practitioner Family | DX: R10.9 Unspecified abdominal pain (principal); R10.13 Epigastric pain | CPT/HCPCS: 80053; 81000; 85025 ==

== ENCOUNTER → 2024-09-25 15:39 | Outpatient (BNVA) | payer OTHER, SELFPAY | PROVIDERS: Family Provider Nurse Practitioner Family; PCP Nurse Practitioner Family; Visit Provider Nurse Practitioner Family | DX: Z34.91 Encounter for supervision of normal pregnancy, unspecified, first trimester (principal) | CPT/HCPCS: 81025 ==

== ENCOUNTER → 2024-10-08 13:59 | Outpatient (BNVA) | payer OTHER, SELFPAY | PROVIDERS: Family Provider Nurse Practitioner Family; PCP Nurse Practitioner Family; Visit Provider Nurse Practitioner Women's Health | DX: Z32.01 Encounter for pregnancy test, result positive (principal) | CPT/HCPCS: 81025 ==

== ENCOUNTER → 2024-10-28 08:33 | Outpatient (BNVA) | payer OTHER, SELFPAY | PROVIDERS: Family Provider Nurse Practitioner Family; PCP Nurse Practitioner Family; Visit Provider Obstetrics & Gynecology | DX: Z34.81 Encounter for supervision of other normal pregnancy, first trimester (principal) | CPT/HCPCS: 76801; 80307; 84315; 85025; 86592; 86762; 86803; 86850; 86900; 87086; 87340; 87491; 87591; 87661; 87806 ==

== ENCOUNTER → 2024-11-06 10:19 | Outpatient (BNVA) | payer OTHER, SELFPAY | PROVIDERS: Family Provider Nurse Practitioner Family; PCP Nurse Practitioner Family; Visit Provider Obstetrics & Gynecology | DX: Z34.90 Encounter for supervision of normal pregnancy, unspecified, unspecified trimester (principal) | CPT/HCPCS: 84315 ==

== ENCOUNTER → 2024-12-08 09:55 | Outpatient (BNVA) | payer OTHER, SELFPAY | PROVIDERS: Family Provider Nurse Practitioner Family; PCP Nurse Practitioner Family; Visit Provider Nurse Practitioner Women's Health | DX: Z34.80 Encounter for supervision of other normal pregnancy, unspecified trimester (principal) | CPT/HCPCS: 84315 ==

== ENCOUNTER → 2025-01-04 14:24 | Outpatient (BNVA) | payer OTHER, SELFPAY | PROVIDERS: Family Provider Nurse Practitioner Family; PCP Nurse Practitioner Family; Visit Provider Obstetrics & Gynecology | DX: Z34.92 Encounter for supervision of normal pregnancy, unspecified, second trimester (principal) | CPT/HCPCS: 76805 ==

== ENCOUNTER → 2025-02-01 13:32 | Outpatient (BNVA) | payer OTHER, SELFPAY | PROVIDERS: Family Provider Nurse Practitioner Family; PCP Nurse Practitioner Family; Visit Provider Nurse Practitioner Women's Health | DX: Z34.80 Encounter for supervision of other normal pregnancy, unspecified trimester (principal) | CPT/HCPCS: 76816; 84315 ==

== ENCOUNTER → 2025-03-01 14:26 | Outpatient (BNVA) | payer SELFPAY | PROVIDERS: Family Provider Nurse Practitioner Family; PCP Nurse Practitioner Family; Visit Provider Obstetrics & Gynecology | DX: Z34.90 Encounter for supervision of normal pregnancy, unspecified, unspecified trimester (principal) | CPT/HCPCS: 82950; 84315; 85025 ==

== ENCOUNTER → 2025-03-16 14:40 | Outpatient (BNVA) | payer OTHER, SELFPAY | PROVIDERS: Family Provider Nurse Practitioner Family; PCP Nurse Practitioner Family; Visit Provider Nurse Practitioner Women's Health | DX: Z34.90 Encounter for supervision of normal pregnancy, unspecified, unspecified trimester (principal) | CPT/HCPCS: 84315 ==

== ENCOUNTER → 2025-03-31 15:45 | Outpatient (BNVA) | payer OTHER, SELFPAY | PROVIDERS: Family Provider Nurse Practitioner Family; PCP Nurse Practitioner Family; Visit Provider Obstetrics & Gynecology | DX: Z34.83 Encounter for supervision of other normal pregnancy, third trimester (principal) | CPT/HCPCS: 84315 ==

== ENCOUNTER → 2025-04-13 12:26 | Outpatient (BNVA) | payer OTHER, SELFPAY | PROVIDERS: Family Provider Nurse Practitioner Family; PCP Nurse Practitioner Family; Visit Provider Nurse Practitioner Women's Health | DX: Z34.90 Encounter for supervision of normal pregnancy, unspecified, unspecified trimester (principal) | CPT/HCPCS: 76816; 76820 ==

== ENCOUNTER 2025-04-13 14:02 | Outpatient (CLI) | payer OTHER, SELFPAY ==
[2025-04-13 14:00] VITALS: BMI 27.2
[2025-04-13 14:36] VITALS: BP 107/63; PULSE 94
[2025-04-13 14:40] LABS: Nitrazine Paper, PH Negative
[2025-04-13 14:51] VITALS: BP 106/73; PULSE 108
[2025-04-13 15:11] VITALS: BP 106/71; PULSE 108; RESP 17
== END 2025-04-13 15:11 | disposition home or self-care (01) ==
LOC: OPOB 14:04 → OBGYN 14:07
PROVIDERS: Family Provider Nurse Practitioner Family; PCP Nurse Practitioner Family; Visit Provider Obstetrics & Gynecology
DX: O26.899 Other specified pregnancy related conditions, unspecified trimester (principal); Z3A.00 Weeks of gestation of pregnancy not specified; N89.8 Other specified noninflammatory disorders of vagina
CPT/HCPCS: 59025; 83986; 84112; 84315; 99211

== ENCOUNTER → 2025-04-15 16:10 | Outpatient (BNVA) | payer OTHER, SELFPAY | PROVIDERS: Family Provider Nurse Practitioner Family; PCP Nurse Practitioner Family; Visit Provider Obstetrics & Gynecology | DX: Z34.90 Encounter for supervision of normal pregnancy, unspecified, unspecified trimester (principal) | CPT/HCPCS: 84315 ==

== ENCOUNTER → 2025-04-21 15:57 | Outpatient (BNVA) | payer OTHER, SELFPAY | PROVIDERS: Family Provider Nurse Practitioner Family; PCP Nurse Practitioner Family; Visit Provider Obstetrics & Gynecology | DX: Z34.90 Encounter for supervision of normal pregnancy, unspecified, unspecified trimester (principal) | CPT/HCPCS: 84315 ==

== ENCOUNTER → 2025-04-28 14:23 | Outpatient (BNVA) | payer OTHER, SELFPAY | PROVIDERS: Family Provider Nurse Practitioner Family; PCP Nurse Practitioner Family; Visit Provider Obstetrics & Gynecology | DX: Z34.90 Encounter for supervision of normal pregnancy, unspecified, unspecified trimester (principal) | CPT/HCPCS: 84315; 87081 ==

== ENCOUNTER 2025-05-08 07:05 | Inpatient (IN) | payer OTHER, SELFPAY ==
[2025-05-08] VITALS (112 sets, daily range): BP systolic 93–190; BP diastolic 53–139; PULSE 53–157; RESP 16; O2SAT 92–100; BMI 27.6
[2025-05-08 08:29] LABS: Hematocrit 34.9 % (36-47); Hemoglobin 11.80 g/dL (11.27-16.99); Mean Corpuscular HGB Conc 33.8 g/dL (30-55); Mean Corpuscular Hemoglobin 30.9 pg (27-33); Mean Corpuscular Volume 91.4 fl (85-98); Nucleated Red Blood Cells % 0 %; Platelet Count 188 10^3/cmm (157-399); Red Blood Count 3.82 10^6/uL (3.85-5.65); White Blood Count 9.48 10^3/uL (3.29-11.43)
--- NOTE | 2025-05-08 08:35 | PM.OBGYHP ---
Providers/Chief Complaint Admitting Physician: Lucio Dahl MD Primary [employer]: Lucio Dahl MD Primary Care Provider: JESUS Francisco Chief Complaint: IOL HPI [employer] History of Present Illness Melissa Mina is a 24 year old female EDC May 13, 2025 At 39 w 2 d No complications Admitted for elective induction of labor No c/o + active movements Present Details : 4 Para: 3 Labs Rubella: Immune RPR: Negative GBS: Negative Medications/Allergies Home Medications ?Medication ?Instructions ?Recorded ?Confirmed ?Last Taken ?Type docosahexaenoic acid 200 mg mg PO DAILY 10/08/24 05/05/25 Unknown History capsule ( DHA) Allergies Allergy/AdvReac Type Severity Reaction Status Date / Time doxycycline AdvReac Severe severe Verified 05/05/25 16:03 Nausea and diarrhea PFSH [employer] PFSH: Medical History Oral contraception initial prescription No pertinent past medical history Denies history of: hypertension, diabetes, heart, lung, liver, kidney, thyroid, genital herpes, bleeding problems, or clotting problems PMD: Dr. Serrano Surgical History No history of previous surgery Family History Denies family history of Colon cancer Ovarian cancer Diabetes Heart disease Hyperlipidemia Breast cancer Hypertension Uterine cancer Thyroid disease Stroke Social History Smoking and tobacco/nicotine status: never used tobacco/nicotine Second hand smoke exposure: No Alcohol intake: never Substance/Drug Use: never History History History 4 Term 3 0 Miscarriages/Ectopic 0 Living Children 3 Care JORGE Calculator Estimated Delivery Date Method Current WG Current Estimate 05/13/25 Ultrasound #1 39w 3d Specific Issues/Plans DESIRES TUBAL LIGATION LOW KENYA--- KENYA on growth u/s 04/13/25, 6.85. Sent to OB and amnisure and bedside u/s were normal. Vitals/I&O/Wt Last Vital Signs Temp 98.3 F 05/09/25 00:42 Pulse 71 05/09/25 03:25 Resp 16 05/08/25 07:54 BP 153/74 05/09/25 03:25 Pulse Ox 96 05/08/25 20:31 O2 Del Method Room Air 05/08/25 07:20 05/08/25 05/08/25 05/09/25 14:59 22:59 06:59 Intake Total 48.783 / 48.783 138.500 / 187.283 29.2 / 216.483 Balance 48.783 / 48.783 138.500 / 187.283 29.2 / 216.483 Weight last 48 hrs Weight 171 lb Physical Exam Narrative: Weight 171 lbs; 5?6? VS normal General comfortable, awake, alert Lungs: clear Cor: RRR Abd: nontender FH 37 cm, cephalic Cervix: 3 / 90 / -2 / posterior Ext: no edema External monitor: heart tracing good variability, + accelerations Urinary Catheter Management: Rodriguez: Cath Placed During This Visit: yes Urinary Catheter Date of Insertion: 05/08/25 Urinary Catheter Time of Insertion: 20:21 Data 05/08/25 07:43 Results Labs OB ([facility]): Obstetrics US 04/13/25 Blood Type O Positive 05/08/25 Antibody Screen Negative 05/08/25 Hct, (36-47) 34.9 % L 05/08/25 Hgb, (11.27-16.99) 11.80 g/dL 05/08/25 Rho(D) Type Rh positive 05/08/25 Plt Count, (157-399) 188 10^3/cmm 05/08/25 Hep Bs Antigen, (Nonreactive) Non-reactive 10/28/24 Hepatitis C Antibody, (Nonreactive) Non-reactive 10/28/24 Rubella IgG Antibody, (0.0-10.0) 31.1 IU/mL H 10/28/24 RPR, (Nonreactive) Nonreactive 10/28/24 HIV 1&2 Ab & HIV 1 Ag, (Non-Reactiv) Non-reactive 10/28/24 Glucose 1 Hr 50 gm, (85-140) 127 mg/dL 03/01/25 HCG, Qual, (Negative) Positive H 10/08/24 Urine Opiates Screen, (Negative) Negative ng/mL 10/28/24 Ur Barbiturates Screen, (Negative) Negative ng/mL 10/28/24 Ur Phencyclidine Scrn, (Negative) Negative ng/mL 10/28/24 Ur Amphetamines Screen, (Negative) Negative ng/mL 10/28/24 U Benzodiazepines Scrn, (Negative) Negative ng/mL 10/28/24 Urine Cocaine Screen, (Negative) Negative ng/mL 10/28/24 U Marijuana (THC) Screen, (Negative) Negative ng/mL 10/28/24 Micro Urine Specimen 10/28/24 A&P Assessment and plan 1. : 39 w 2 d Admitted for elective induction of labor Fetus reassuring Plan start Pitocin per protocol h/o x three GBS negative Rh + PDMP PDMP Reviewed: Not Reviewed Attestations Medical Necessity Statement*: patient at 39 w 2 d, admitted for induction of labor Coding Level of Care Code Acute Code for Chg Fwd Diagnoses Z34.90
[2025-05-08] MEDS: oxytocin 30 UNIT/500 ML BAG IV (09:28)
--- NOTE | 2025-05-08 17:14 | PC.NURSE ---
05/08/25 1640: Discussed with patient that Dr. Dahl stated he can come in to [facility] if she desires. Patient states I'm starting to feel the contractions a little more, so let's hold off for a little while.
--- NOTE | 2025-05-08 19:47 | ANES.PREANE2 ---
Pre-Anesthetic Assessment Height/Weight: Height 1.68 m Weight 77.564 kg Pulse Resp BP Pulse Ox O2 Del Method 93 16 112/74 98 Room Air 05/08/25 19:42 05/08/25 07:54 05/08/25 19:42 05/08/25 19:41 05/08/25 07:20 Preop Diagnosis: Term labor JONATHAN Was Beta Nahid taken within 24 hours: N/A Was Clonidine taken within 24 hours: N/A Social No alcohol and No tobacco Exam alert, oriented x 3, clear to auscultation bilaterally and regular rate & rhythm Airway Submandibular: within normal limits Cervical ROM: within normal limits Mallampati: Class II Dentition: full History/ROS No significant history except as noted and No significant complaints Pulmonary None reported CV/HEM None reported None reported Hepatic None reported GI None reported Metabolic None reported Musc/skel None reported Neuropsych None reported Anesthetic Plan ASA status: 2 Anesthesia: Anesthesia Evaluation and Regional (specify below) (JONATHAN) Risk of > 500 ml blood loss (7ml/kg in children): No Medications/Allergies Home Medications ?Medication ?Instructions ?Recorded ?Confirmed ?Last Taken ?Type docosahexaenoic acid 200 mg mg PO DAILY 10/08/24 05/05/25 Unknown History capsule ( DHA) Allergies Allergy/AdvReac Type Severity Reaction Status Date / Time doxycycline AdvReac Severe severe Verified 05/05/25 16:03 Nausea and diarrhea Current Medications Generic Name Dose Route Start Last Admin Trade Name Freq PRN Reason Stop Dose Admin Oxytocin 30 unit in 500 mls @ 1 mls/hr 05/08/25 08:30 05/08/25 16:00 Pitocin IV 20 milliunit/min .Q24H VIKASH 20 mls/hr Protocol Titration 1 MILLIUNIT/MIN Dextrose/Lactated Ringer's 1,000 mls @ 125 mls/hr 05/08/25 08:30 05/08/25 09:29 Dextrose 5%-Lactated Ringers IV 125 mls/hr .Q8H VIKASH Administration Lactated Ringer's 1,000 mls @ 999 mls/hr 05/08/25 18:15 05/08/25 18:30 Lactated Ringers IV 999 mls/hr .Q1H1M PRN Administration See label comments PFSH Anesthesia Medical History Oral contraception initial prescription No pertinent past medical history Denies history of: hypertension, diabetes, heart, lung, liver, kidney, thyroid, genital herpes, bleeding problems, or clotting problems PMD: Dr. Serrano Surgical History No history of previous surgery Family History Denies family history of Colon cancer Ovarian cancer Diabetes Heart disease Hyperlipidemia Breast cancer Hypertension Uterine cancer Thyroid disease Stroke Social History Smoking and tobacco/nicotine status: never used tobacco/nicotine Second hand smoke exposure: No Alcohol intake: never Substance/Drug Use: never Female Reproductive History : 4 Data Anesthesia 05/08/25 07:43 Short CBC 05/08/25 Range/Units 07:43 WBC 9.48 (3.29-11.43) 10^3/uL Hgb 11.80 (11.27-16.99) g/dL Hct 34.9 L (36-47) % MCV 91.4 (85-98) fl Plt Count 188 (157-399) 10^3/cmm Neut % (Auto) 68.5 % Neut # (Auto) 6.50 (1.8-7.7) 10^3/uL Blood Bank 05/08/25 07:43 Blood Type O Positive Rho(D) Type Rh positive Antibody Screen Negative
--- NOTE | 2025-05-08 19:48 | ANES.PROC ---
Anesthesia Procedures Procedure/Date: 05/08/25 Epidural: Time Out Performed: Yes Consents Signed: Procedure Consent Consent: requested by attending/covering physician, from patient, risks and benefits reviewed and patient agrees to proceed Lumbar Level: L3-L4 Epidural position: sitting Epidural procedure: sterile prep of area, 1% lidocaine to numb the area, 18 g needle, neg for paresthesia, test dose given, 1.5% xylocaine 1:200k epi (5cc), 0.2% Ropivacaine bolus ml (13cc/hour), placed PCEA, no systemic response, sterile dressing applied, L.U.D. no apparent complications and 0.2% Ropiavacaine @ mls/hr (13cc/hour) Additional Comments: Pt tolerated well
[2025-05-08] MEDS: ROPivacaine premix 200 MG/100 ML PREMIX 10 MG EPIDURAL (19:53)
[2025-05-09] VITALS (77 sets, daily range): BP systolic 91–157; BP diastolic 54–88; PULSE 52–115; RESP 16; TEMP 36.6–37.7; O2SAT 98
[2025-05-09] MEDS: methylergonovine 0.2 mg/mL INJ 1 mL IM (02:26)
--- NOTE | 2025-05-09 02:45 | P.PCNOB_ITS ---
Delivery Note: Date of delivery: May 09, 2025 Pre-delivery diagnoses: 39 w 2 d induction of labor Post-delivery diagnoses: 39 w 2 d induction of labor vaginal delivery mild hemorrhage Procedure: induction of labor vaginal delivery Op report anesthesia: Epidural Delivering Physician: Lucio Dahl MD Estimated blood loss (mL): 500 Findings: , vigorous female 2+ meconium-stained fluid Cord gases and blood obtained No episiotomy / lacerations + mildly excessive bleeding controlled w ith uterine massage, Pitocin, and methergine EBL: 500 cc No complications Pre-Delivery Course: normal labor course Delivery: vaginal Post-Delivery Status: good History History History 4 Term 3 0 Miscarriages/Ectopic 0 Living Children 3 A&P Assessment and plan 1. Vaginal delivery: PDMP PDMP Reviewed: Not Reviewed Coding Level of Care Code Acute Code for Chg Fwd Diagnoses Vaginal delivery O80
[2025-05-09] MEDS: benzocaine-menthol 78 gm Canister 1 SPRAY TOPICAL (09:52)
[2025-05-09] MEDS: PRENATAL VIT NO.130/IRON/FOLIC 1 EACH TABLET PO (09:53)
[2025-05-09 15:02] LABS: Hematocrit 30.8 % (36-47); Hemoglobin 10.70 g/dL (11.27-16.99); Mean Corpuscular HGB Conc 34.7 g/dL (30-55); Mean Corpuscular Hemoglobin 31.3 pg (27-33); Mean Corpuscular Volume 90.1 fl (85-98); Platelet Count 144 10^3/cmm (157-399); Red Blood Count 3.42 10^6/uL (3.85-5.65); White Blood Count 13.80 10^3/uL (3.29-11.43)
[2025-05-10 05:44] VITALS: BP 113/77; PULSE 67; RESP 16; TEMP 36.9; O2SAT 97
[2025-05-10] MEDS: PRENATAL VIT NO.130/IRON/FOLIC 1 EACH TABLET PO (08:30)
[2025-05-10 11:59] VITALS: BP 113/79; PULSE 77; RESP 16; TEMP 36.4; O2SAT 96
--- NOTE | 2025-05-10 12:04 | PM.OBGYDC ---
Discharge Providers CLINICAL IMMUNOLOGIST Date of Admission: 05/08/25 07:05 Date of Discharge: 05/10/25 Attending Provider at Admission: Lucio Dahl MD Attending Provider at Discharge: Lucio Dahl MD Primary Care Provider: JESUS Francisco Diagnoses at Discharge Discharge Diagnosis 1. Vaginal delivery: Details from hospital stay: 24yo female delivered via after IOL a viable female . Labor uneventful as was her stay. Pt desires discharge this am. Discharge expectations has been reviewed and precautions reviewed to return if COLES, Visual changes, severe Abd pain or excessive vaginal bleeding. VSS, Afebrile Abd- soft, fundus firm, Lochia light Ext- no edema, Neg Homans. Pt was counseled on no heavy lifting and no sexual intercourse x 6wks. Pt desires to be scheduled for Tubal Sterilization after next clinic apptmt. Pt advised to continue vitamins as long as she continues Breast feeding. Reason for Visit Reason for Visit: IOL Brief History: as above Hospital Course Hospital Course as above Information Peripartum Data: Infant Delivery Method: Vaginal Physical Exam Back/Pelvis: OTHER: Abd- as above Urinary Catheter Management: Rodriguez: Cath Placed During This Visit: yes, but has since been removed by the nurse Reason for Continuing Indwelling Catheter: Decision to DC Catheter Urinary Catheter Date of Insertion: 05/08/25 Urinary Catheter Time of Insertion: 20: Date Urinary Catheter Removed: 05/09/25 Time Urinary Catheter Discontinued: 02:10 History History History 4 Term 4 0 Miscarriages/Ectopic 0 Living Children 4 Discharge Data Studies Completed and Pending Laboratory Results WBC 13.80 10^3/uL (3.29-11.43) H 05/09/25 14:39 RBC 3.42 10^6/uL (3.85-5.65) L 05/09/25 14:39 Hgb 10.70 g/dL (11.27-16.99) L 05/09/25 14:39 Hct 30.8 % (36-47) L 05/09/25 14:39 MCV 90.1 fl (85-98) 05/09/25 14:39 MCH 31.3 pg (27-33) 05/09/25 14:39 MCHC 34.7 g/dL (30-55) 05/09/25 14:39 RDW 12.4 % (12.1-15.1) 05/09/25 14:39 Plt Count 144 10^3/cmm (157-399) L 05/09/25 14:39 MPV 11.8 fL (7.4-10.4) H 05/09/25 14:39 Neut % (Auto) 68.5 % 05/08/25 07:43 Lymph % (Auto) 22.6 % 05/08/25 07:43 Craven % (Auto) 6.8 % 05/08/25 07:43 Eos % (Auto) 1.4 % 05/08/25 07:43 Baso % (Auto) 0.3 % 05/08/25 07:43 Neut # (Auto) 6.50 10^3/uL (1.8-7.7) 05/08/25 07:43 Lymph # (Auto) 2.1 10^3/uL (0.8-4.8) 05/08/25 07:43 Craven # (Auto) 0.6 10^3/uL (0.2-0.9) 05/08/25 07:43 Eos # (Auto) 0.1 10^3/uL (0.0-0.8) 05/08/25 07:43 Baso # (Auto) 0.0 10^3/uL (0.0-0.1) 05/08/25 07:43 Nucleated RBC % (auto) 0 % 05/08/25 07:43 Nucleated RBCs # 0.0 /100WBC 05/08/25 07:43 Blood Type O Positive 05/08/25 07:43 Rho(D) Type Rh positive 05/08/25 07:43 Antibody Screen Negative 05/08/25 07:43 Vitals Last Vital Signs Temp 97.6 F 05/10/25 11:59 Pulse 77 05/10/25 11:59 Resp 16 05/10/25 11:59 BP 113/79 05/10/25 11:59 Pulse Ox 96 05/10/25 11:59 O2 Del Method Room Air 05/10/25 11:59 Results Labs OB ([facility]): Obstetrics US 04/13/25 Blood Type O Positive 05/08/25 Antibody Screen Negative 05/08/25 Hct, (36-47) 30.8 % L 05/09/25 Hgb, (11.27-16.99) 10.70 g/dL L 05/09/25 Rho(D) Type Rh positive 05/08/25 Plt Count, (157-399) 144 10^3/cmm L 05/09/25 Hep Bs Antigen, (Nonreactive) Non-reactive 10/28/24 Hepatitis C Antibody, (Nonreactive) Non-reactive 10/28/24 Rubella IgG Antibody, (0.0-10.0) 31.1 IU/mL H 10/28/24 RPR, (Nonreactive) Nonreactive 10/28/24 HIV 1&2 Ab & HIV 1 Ag, (Non-Reactiv) Non-reactive 10/28/24 Glucose 1 Hr 50 gm, (85-140) 127 mg/dL 03/01/25 HCG, Qual, (Negative) Positive H 10/08/24 Urine Opiates Screen, (Negative) Negative ng/mL 10/28/24 Ur Barbiturates Screen, (Negative) Negative ng/mL 10/28/24 Ur Phencyclidine Scrn, (Negative) Negative ng/mL 10/28/24 Ur Amphetamines Screen, (Negative) Negative ng/mL 10/28/24 U Benzodiazepines Scrn, (Negative) Negative ng/mL 10/28/24 Urine Cocaine Screen, (Negative) Negative ng/mL 10/28/24 U Marijuana (THC) Screen, (Negative) Negative ng/mL 10/28/24 Micro Urine Specimen 10/28/24 Discharge Plan Discharge Patient Disposition: Home Condition: Stable Prescriptions: Continued DHA 200 mg capsule PO DAILY Discharge Order = DC NOW: Discharge Order (Routine); Ordered 05/10/25 Ordered By: Mirian Leon Referrals: Feli Hidalgo NP [Nurse Practitioner, CLINICAL IMMUNOLOGIST] - 06/22/25 11:00 am Referral Note: * Your 6 week appointment is on 06/22/2025 at 11:00am Discharge Diet: Regular Discharge Activity: Increase activity as tolerated Patient Instructions: Depression (DC), Opioid Safety (DC), Preeclampsia and Eclampsia After Delivery (GEN), Hemorrhage (DC), OB Discharge Report, OB Food/Drug Interaction Guide, Opioid Safety, OB Home Care, OB Vaginal Deliveries - [facility], Patient Portal & Reji Instructions, Abnormal Bleeding Activity Restrictions/Additional Instructions: No sex x 6 wks Discharge Attestations CLINICAL IMMUNOLOGIST Time Spent in Discharge Care*: less than 30 min Coding Level of Care Code Acute Code for Chg Fwd Diagnoses Vaginal delivery O80
== END 2025-05-10 12:35 | disposition home or self-care (01) | DRG 806 ==
PROVIDERS: Admitting Provider Obstetrics & Gynecology; PCP Nurse Practitioner Family; Visit Provider Obstetrics & Gynecology
DX: O77.0 Labor and delivery complicated by meconium in amniotic fluid (principal); O72.1 Other immediate postpartum hemorrhage; Z37.0 Single live birth; Z3A.39 39 weeks gestation of pregnancy
CPT/HCPCS: 36415; 51702; 59025; 59409; 85025; 85027; 86850; 86900; 96372; 96374; J2210; J2590; J2795; J3010; J7120; J7121; J9999